=== PATIENT | male | born 1950 | race African-American/Black ===

== ENCOUNTER 2019-11-14 13:32 | Inpatient (IN) | payer OTHER ==
[~2019-11-14] VITALS: Ht 180.3 cm; Wt 76.2 kg
[2019-11-14] MEDS ORDERED: IPRATROPIUM BROMIDE (0.02%) 0.5MG/2.5ML NEB HHN STA (13:50)
[2019-11-14] MEDS ORDERED: METHYLPREDNISOLONE SOD SUCC 125 MG/2 ML VIAL IV STA (13:50)
[2019-11-14] MEDS ORDERED: ALBUTEROL (0.083%) 2.5MG/3ML NEB HHN STA (13:50)
[2019-11-14 14:06] LABS: HEMATOCRIT. 44.6 % (42.0-52.0); HEMOGLOBIN. 15.4 g/dL (14.0-18.0); MEAN CORPUSCULAR HEMOGLOBIN 31.7 pg (28.0-32.0); MEAN CORPUSCULAR VOLUME 91.7 fL (80.0-94.0); MEAN PLATELET VOLUME 7.6 fl (7.4-10.4); PLATELET 193 x1000/uL (130-400); RED BLOOD CELL COUNT 4.87 mill/uL (4.7-6.1); RED CELL DISTRIBUTION WIDTH 14.5 % (11.6-14.6)
[2019-11-14 14:14] LABS: CHLORIDE 96 mEq/L (98-107)
[2019-11-14 14:56] LABS: PLATELET ESTIMATE NORMAL
[2019-11-15] MEDS ORDERED: IPRATROPIUM/ALBUTEROL 0.5-3(2.5)MG/3ML NEB HHN PRN (05:00)
[2019-11-15 12:00] VITALS: BP 136/75
[2019-11-15] MEDS ORDERED: ALBUTEROL 6.7GM HFA INHALER ORI PRN (12:00)
[2019-11-15] MEDS ORDERED: BENZONATATE 100MG CAPSULE PO PRN (12:00)
[2019-11-15] MEDS: AZITHROMYCIN 500 MG TABLET PO SCH (13:22)
[2019-11-15] MEDS: ENOXAPARIN 40MG/0.4ML SYR SUBCUT SCH (13:23)
[2019-11-15] MEDS: METHYLPREDNISOLONE SOD SUCC 40 MG/ML VIAL IV SCH ×2 (13:23→20:40)
[2019-11-15] MEDS ORDERED: ALBUTEROL 6.7GM HFA INHALER ORI SCH (14:45)
[2019-11-15] MEDS: CEFTRIAXONE 1 G PREMIX 50 ML IV SCH (14:59)
[2019-11-15 16:00] VITALS: BP 112/83
[2019-11-15 17:37] LABS: D-DIMER 0.57 mg/L FEU (<0.50); PROTHROMBIN TIME 10.9 sec (9.6-11.0)
[2019-11-15 17:39] LABS: C REACTIVE PROTEIN QUANT 6.6 mg/L (0.0-3.0)
[2019-11-15 20:00] VITALS: BP 134/82
[2019-11-16 04:00] VITALS: BP 151/87
[2019-11-16] MEDS: METHYLPREDNISOLONE SOD SUCC 40 MG/ML VIAL IV SCH ×2 (04:35→12:04)
[2019-11-16 06:44] LABS: CLARITY URINE CLEAR (CLEAR); COLOR URINE YELLOW (YELLOW); KETONES URINE NEGATIVE (NEGATIVE); LEUKOCYTE ESTERASE URINE NEGATIVE (NEGATIVE); NITRITE URINE NEGATIVE (NEGATIVE); OCCULT BLOOD URINE NEGATIVE (NEGATIVE); PROTEIN URINE NEGATIVE (NEGATIVE); SPECIFIC GRAVITY URINE 1.012 (1.005-1.030); UROBILINOGEN URINE 0.2 E.U./dL (0.2-1.0)
[2019-11-16 07:01] LABS: *AMPHETAMINES SCREEN URINE NEGATIVE (NEGATIVE); *BARBITURATES SCREEN URINE NEGATIVE (NEGATIVE); CANNABINOID URINE SCREEN NEGATIVE (NEGATIVE); OPIATES URINE SCREEN NEGATIVE (NEGATIVE); PHENCYCLIDINE URINE SCREEN NEGATIVE (NEGATIVE)
[2019-11-16 07:02] LABS: *BENZODIAZEPINES SCREEN URINE NEGATIVE (NEGATIVE); *COCAINE SCREEN URINE NEGATIVE (NEGATIVE); METHADONE URINE SCREEN NEGATIVE (NEGATIVE)
[2019-11-16] MEDS: AZITHROMYCIN 500 MG TABLET PO SCH (08:17)
[2019-11-16 08:23] VITALS: BP 180/106
[2019-11-16 09:17] VITALS: BP 142/74
[2019-11-16] MEDS ORDERED: IPRATROPIUM/ALBUTEROL 0.5-3(2.5)MG/3ML NEB HHN PRN (11:15)
[2019-11-16 11:43] VITALS: BP 144/96
[2019-11-16] MEDS: ENOXAPARIN 40MG/0.4ML SYR SUBCUT SCH (12:30)
[2019-11-16] MEDS: CEFTRIAXONE 1 G PREMIX 50 ML IV SCH (15:45)
[2019-11-16 16:30] VITALS: BP 146/90
[2019-11-16 16:55] LABS: HEMATOCRIT. 46.3 % (42.0-52.0); HEMOGLOBIN. 15.7 g/dL (14.0-18.0); MEAN CORPUSCULAR HEMOGLOBIN 31.1 pg (28.0-32.0); MEAN CORPUSCULAR VOLUME 92.1 fL (80.0-94.0); MEAN PLATELET VOLUME 7.5 fl (7.4-10.4); PLATELET 205 x1000/uL (130-400); RED BLOOD CELL COUNT 5.03 mill/uL (4.7-6.1); RED CELL DISTRIBUTION WIDTH 14.6 % (11.6-14.6)
[2019-11-16] MEDS ORDERED: METHYLPREDNISOLONE SOD SUCC 40 MG/ML VIAL IV SCH (17:00)
[2019-11-16 17:01] LABS: CHLORIDE 99 mEq/L (98-107)
[2019-11-16 17:30] LABS: PLATELET ESTIMATE NORMAL
[2019-11-16] MEDS ORDERED: IPRATROPIUM/ALBUTEROL 0.5-3(2.5)MG/3ML NEB HHN SCH (18:00)
[2019-11-16 19:27] VITALS: BP 144/95
[2019-11-16] MEDS ORDERED: GUAIFENESIN 600MG ER TABLET PO SCH (21:00)
== END 2019-11-16 22:35 | disposition short-term general hospital (02) | DRG 871 ==
LOC: ER 14:07 → MICUSO 11-15 02:24 → EDBEDREQTM 11-15 02:26 → EDBEDREQ 11-15 02:26 → EDBEDREQDT 11-15 02:26 → 7WST 11-15 11:11 → 6WST 11-16 00:50
PROVIDERS: ADMIT Internal Medicine Nephrology; ATTEND Internal Medicine Nephrology
DX: A41.9 Sepsis, unspecified organism (principal); J96.01 Acute respiratory failure with hypoxia; J18.9 Pneumonia, unspecified organism; E44.1 Mild protein-calorie malnutrition; E87.1 Hypo-osmolality and hyponatremia; J44.1 Chronic obstructive pulmonary disease with (acute) exacerbation; I50.40 Unspecified combined systolic (congestive) and diastolic (congestive) heart failure; J44.0 Chronic obstructive pulmonary disease with (acute) lower respiratory infection; E87.8 Other disorders of electrolyte and fluid balance, not elsewhere classified; Z20.828 Contact with and (suspected) exposure to other viral communicable diseases; D71 Functional disorders of polymorphonuclear neutrophils; Z82.49 Family history of ischemic heart disease and other diseases of the circulatory system; Z68.23 Body mass index [BMI] 23.0-23.9, adult
CPT/HCPCS: 36415; 71045; 80053; 80305; 81003; 82728; 83615; 83880; 84484; 85025; 85379; 85384; 86140; 87077; 93005; 93306; 94640; 96374; 99285; J0696; J1650; J2920; J2930; U0003-CS

== ENCOUNTER 2021-07-07 16:14 | Inpatient (IN) | payer MEDICARE, OTHER ==
[~2021-07-07] VITALS: Ht 170.2 cm; Wt 52.2 kg
[2021-07-07] MEDS ORDERED: METHYLPREDNISOLONE SOD SUCC 125 MG/2 ML VIAL IV STA (17:17)
[2021-07-07] MEDS ORDERED: ASPIRIN 81MG TABLET PO ONE (17:30)
[2021-07-07] MEDS ORDERED: SODIUM CHLORIDE 0.9% 1,000 ML IV ONE (17:30)
[2021-07-07] MEDS ORDERED: ALBUTEROL 6.7GM HFA INHALER ORI ONE ×3 (17:30)
[2021-07-07] MEDS ORDERED: CEFTRIAXONE 1 G PREMIX 50 ML IV ONE (18:30)
[2021-07-07] MEDS ORDERED: AZITHROMYCIN 500MG/250ML 250 ML IV ONE (18:30)
[2021-07-07] MEDS ORDERED: SODIUM CHLORIDE 0.9% 1000ML BAG (SEPSIS BOLUS) IV ONE (18:30)
[2021-07-07 19:34] LABS: HEMATOCRIT. 40.7 % (42.0-52.0); HEMOGLOBIN. 12.9 g/dL (14.0-18.0); MEAN CORPUSCULAR HEMOGLOBIN 28.7 pg (28.0-32.0); MEAN CORPUSCULAR VOLUME 90.7 fL (80.0-94.0); MEAN PLATELET VOLUME 9.4 fl (7.4-10.4); PLATELET 143 x1000/uL (130-400); RED BLOOD CELL COUNT 4.49 mill/uL (4.7-6.1); RED CELL DISTRIBUTION WIDTH 16.7 % (11.6-14.6)
[2021-07-07 20:20] LABS: CHLORIDE 96 mEq/L (98-107)
[2021-07-07 21:06] LABS: BG BASE EXCESS 9.7 mmol/L (-2.0-2.0); BG CARBOXYHEMOGLOBIN 0.7 % (0.5-1.5); BG DEOXYHEMOGLOBIN 3.5 % (0.0-5.0); BG FRACTION INSPIRED OXYGEN 32; BG HCO3 ACT 39.8 mmol/L (22.0-26.0); BG METHEMOGLOBIN 0.4 % (0.0-1.5); BG OXYGEN SATURATION 96.5 % (92.0-98.5); BG OXYHEMOGLOBIN 95.4 % (94.0-97.0); BG PCO2 84.2 mmHg (35.0-45.0); BG PH 7.292 (7.350-7.450); BG PO2 92.1 mmHg (75.0-100.0); BG SAMPLE SITE LEFT RADIAL; BG TOTAL HEMOGLOBIN 13.7 g/dL (12.0-18.0); BG VENT MODE NASAL CANNULA
[2021-07-07] MEDS ORDERED: GUAIFENESIN 200MG/10ML SUGAR FREE UDC PO PRN (21:30)
[2021-07-07] MEDS ORDERED: MAGNESIUM/ALUMINUM HYDROXIDE/SIMETHICONE 30ML UDC PO PRN (21:30)
[2021-07-07] MEDS ORDERED: ONDANSETRON HCL 4MG/2ML INJ IV PRN (21:30)
[2021-07-07] MEDS ORDERED: KETOROLAC 15MG/ML VIAL IV PRN (21:30)
[2021-07-07] MEDS ORDERED: ACETAMINOPHEN 325MG TABLET PO PRN ×2 (21:30)
[2021-07-07] MEDS ORDERED: IPRATROPIUM/ALBUTEROL 0.5-3(2.5)MG/3ML NEB NEB PRN (21:30)
[2021-07-07] MEDS ORDERED: NITROGLYCERIN 0.4MG TABLET SL SL PRN (21:30)
[2021-07-07] MEDS ORDERED: ZOLPIDEM TARTRATE 5MG TABLET PO PRN (21:30)
[2021-07-07] MEDS ORDERED: CLONIDINE 0.1MG TABLET PO PRN (21:30)
[2021-07-07 21:52] LABS: ETHANOL BLOOD < 10 mg/dL
[2021-07-07 21:53] LABS: TOTAL IRON BINDING CAPACITY 288 ug/dL (250-450)
[2021-07-07 22:08] LABS: FOLIC ACID (FOLATE) SERUM 17.1 ng/mL (>5.38)
[2021-07-07 22:39] LABS: PLATELET ESTIMATE NORMAL
[2021-07-07 23:10] LABS: BG BASE EXCESS 4.9 mmol/L (-2.0-2.0); BG CARBOXYHEMOGLOBIN 0.5 % (0.5-1.5); BG DEOXYHEMOGLOBIN 0.7 % (0.0-5.0); BG FRACTION INSPIRED OXYGEN 50; BG HCO3 ACT 32.7 mmol/L (22.0-26.0); BG METHEMOGLOBIN 0.1 % (0.0-1.5); BG OXYGEN SATURATION 99.3 % (92.0-98.5); BG OXYHEMOGLOBIN 98.7 % (94.0-97.0); BG PCO2 62.8 mmHg (35.0-45.0); BG PH 7.334 (7.350-7.450); BG PO2 208.4 mmHg (75.0-100.0); BG SAMPLE SITE LEFT RADIAL; BG TOTAL HEMOGLOBIN 13.5 g/dL (12.0-18.0); BG VENT MODE MASK - BIPAP
[2021-07-07] MEDS: ENOXAPARIN 40MG/0.4ML SYR SUBCUT SCH (23:17)
[2021-07-07] MEDS: METHYLPREDNISOLONE SOD SUCC 125 MG/2 ML VIAL IV SCH (23:18)
[2021-07-08] VITALS (7 sets, daily range): BP systolic 104–139; BP diastolic 71–91
[2021-07-08 00:05] LABS: CREATINE KINASE MB FRACTION 2.8 ng/mL (0.5-3.6)
[2021-07-08] MEDS: IPRATROPIUM/ALBUTEROL 0.5-3(2.5)MG/3ML NEB HHN SCH ×6 (00:45→22:09)
[2021-07-08] MEDS: METHYLPREDNISOLONE SOD SUCC 125 MG/2 ML VIAL IV SCH ×3 (06:19→21:34)
[2021-07-08 08:17] LABS: HEMATOCRIT. 40.8 % (42.0-52.0); HEMOGLOBIN. 12.9 g/dL (14.0-18.0); MEAN CORPUSCULAR HEMOGLOBIN 28.9 pg (28.0-32.0); MEAN CORPUSCULAR VOLUME 91.5 fL (80.0-94.0); MEAN PLATELET VOLUME 9.7 fl (7.4-10.4); PLATELET 126 x1000/uL (130-400); RED BLOOD CELL COUNT 4.46 mill/uL (4.7-6.1); RED CELL DISTRIBUTION WIDTH 17.2 % (11.6-14.6)
[2021-07-08 08:26] LABS: CHLORIDE 96 mEq/L (98-107)
[2021-07-08 08:52] LABS: CREATINE KINASE MB FRACTION 2.3 ng/mL (0.5-3.6)
[2021-07-08] MEDS: ZINC SULFATE 220 MG ( 50 ) CAPSULE PO SCH (10:38)
[2021-07-08] MEDS: CHOLECALCIFEROL (D3) 1000 UNIT TABLET PO SCH (10:38)
[2021-07-08] MEDS: FAMOTIDINE 20MG TABLET PO SCH ×2 (10:38→21:34)
[2021-07-08] MEDS: ASPIRIN 325MG EC TABLET PO SCH (10:38)
[2021-07-08] MEDS: ASCORBIC ACID 500 MG TABLET PO SCH ×2 (10:38→21:34)
[2021-07-08] MEDS: FUROSEMIDE 40MG/4ML VIAL IVP SCH ×2 (10:39→21:34)
[2021-07-08] MEDS ORDERED: INFLUENZA VACCINE 05/PF 0.5 ML SYRINGE IM ONE (13:15)
[2021-07-08] MEDS ORDERED: PNEUMOCOCCAL 23-VAL P-SAC VAC 0.5 ML IM ONE (13:15)
[2021-07-08 13:44] LABS: PLATELET ESTIMATE SLIGHTLY DECREASED
[2021-07-08] MEDS ORDERED: SODIUM POLYSTYRENE SULFONATE 15 G/60 ML BOT PO NR (14:00)
[2021-07-08] MEDS: CEFTRIAXONE 1,000 MG in DEXTROSE 5% WATER 50 ML IV SCH (14:46)
[2021-07-08] MEDS ORDERED: TERBUTALINE SULFATE 1MG/ML VIAL SUBCUT NR (15:00)
[2021-07-08] MEDS: AZITHROMYCIN 500 MG in DEXT 5% WATER 250 ML IV SCH (15:53)
[2021-07-08] MEDS ORDERED: CEFTRIAXONE 1,000 MG in DEXTROSE 5% WATER 50 ML IV SCH (20:00)
[2021-07-08] MEDS ORDERED: AZITHROMYCIN 500 MG in DEXT 5% WATER 250 ML IV SCH (21:00)
[2021-07-08] MEDS: ENOXAPARIN 40MG/0.4ML SYR SUBCUT SCH (21:34)
[2021-07-09] VITALS (12 sets, daily range): BP systolic 113–143; BP diastolic 70–97
[2021-07-09] MEDS: IPRATROPIUM/ALBUTEROL 0.5-3(2.5)MG/3ML NEB HHN SCH ×6 (01:49→20:00)
[2021-07-09] MEDS: METHYLPREDNISOLONE SOD SUCC 125 MG/2 ML VIAL IV SCH ×3 (05:53→21:35)
[2021-07-09 07:48] LABS: BG BASE EXCESS 15.5 mmol/L (-2.0-2.0); BG CARBOXYHEMOGLOBIN 0.6 % (0.5-1.5); BG DEOXYHEMOGLOBIN 3.1 % (0.0-5.0); BG HCO3 ACT 43.7 mmol/L (22.0-26.0); BG METHEMOGLOBIN 0.3 % (0.0-1.5); BG OXYGEN SATURATION 96.9 % (92.0-98.5); BG PCO2 71.8 mmHg (35.0-45.0); BG PH 7.402 (7.350-7.450); BG PO2 91.6 mmHg (75.0-100.0); BG SAMPLE SITE RIGHT BRACHIAL; BG TOTAL HEMOGLOBIN 13.1 g/dL (12.0-18.0); BG VENT MODE MASK - BIPAP
[2021-07-09] MEDS: CHOLECALCIFEROL (D3) 1000 UNIT TABLET PO SCH (08:02)
[2021-07-09] MEDS: ASCORBIC ACID 500 MG TABLET PO SCH ×2 (08:02→21:34)
[2021-07-09] MEDS: ASPIRIN 325MG EC TABLET PO SCH (08:02)
[2021-07-09] MEDS: FAMOTIDINE 20MG TABLET PO SCH ×2 (08:02→21:34)
[2021-07-09] MEDS: ZINC SULFATE 220 MG ( 50 ) CAPSULE PO SCH (08:02)
[2021-07-09] MEDS: DOCUSATE SODIUM 100MG CAPSULE PO PRN (08:02)
[2021-07-09] MEDS: FUROSEMIDE 40MG/4ML VIAL IVP SCH ×2 (08:02→21:34)
[2021-07-09] MEDS: CEFTRIAXONE 1,000 MG in DEXTROSE 5% WATER 50 ML IV SCH (13:30)
[2021-07-09] MEDS: AZITHROMYCIN 500 MG in DEXT 5% WATER 250 ML IV SCH (14:28)
[2021-07-09] MEDS ORDERED: IOHEXOL-350 100 ML BOTTLE ONE (20:55)
[2021-07-09] MEDS: ENOXAPARIN 40MG/0.4ML SYR SUBCUT SCH (21:35)
[2021-07-10] VITALS (13 sets, daily range): BP systolic 97–132; BP diastolic 65–86
[2021-07-10] MEDS: IPRATROPIUM/ALBUTEROL 0.5-3(2.5)MG/3ML NEB HHN SCH ×5 (00:53→21:07)
[2021-07-10] MEDS ORDERED: INFLUENZA VACCINE 05/PF 0.5 ML SYRINGE IM ONE (05:00)
[2021-07-10] MEDS ORDERED: PNEUMOCOCCAL 23-VAL P-SAC VAC 0.5 ML IM ONE (05:00)
[2021-07-10] MEDS: FUROSEMIDE 40MG/4ML VIAL IVP SCH ×2 (05:10→17:59)
[2021-07-10] MEDS: METHYLPREDNISOLONE SOD SUCC 125 MG/2 ML VIAL IV SCH (05:10)
[2021-07-10] MEDS: ASCORBIC ACID 500 MG TABLET PO SCH ×2 (09:32→21:24)
[2021-07-10] MEDS: ASPIRIN 81MG TABLET PO SCH (09:32)
[2021-07-10] MEDS: DOCUSATE SODIUM 100MG CAPSULE PO PRN (09:32)
[2021-07-10] MEDS: FAMOTIDINE 20MG TABLET PO SCH ×2 (09:32→21:24)
[2021-07-10] MEDS: ZINC SULFATE 220 MG ( 50 ) CAPSULE PO SCH (09:32)
[2021-07-10] MEDS: CHOLECALCIFEROL (D3) 1000 UNIT TABLET PO SCH (09:32)
[2021-07-10 12:36] LABS: CHLORIDE 85 mEq/L (98-107)
[2021-07-10] MEDS: METHYLPREDNISOLONE SOD SUCC 40 MG/ML VIAL IV SCH ×2 (14:47→21:24)
[2021-07-10] MEDS: CEFTRIAXONE 1,000 MG in DEXTROSE 5% WATER 50 ML IV SCH (14:47)
[2021-07-10] MEDS: AZITHROMYCIN 500 MG in DEXT 5% WATER 250 ML IV SCH (15:13)
[2021-07-10] MEDS: ENOXAPARIN 40MG/0.4ML SYR SUBCUT SCH (21:24)
[2021-07-11] VITALS (13 sets, daily range): BP systolic 116–145; BP diastolic 73–93
[2021-07-11] MEDS: IPRATROPIUM/ALBUTEROL 0.5-3(2.5)MG/3ML NEB HHN SCH ×6 (00:07→21:06)
[2021-07-11] MEDS: FUROSEMIDE 40MG/4ML VIAL IVP SCH (06:11)
[2021-07-11] MEDS: METHYLPREDNISOLONE SOD SUCC 40 MG/ML VIAL IV SCH ×3 (06:11→21:24)
[2021-07-11] MEDS: CHOLECALCIFEROL (D3) 1000 UNIT TABLET PO SCH (08:02)
[2021-07-11] MEDS: ZINC SULFATE 220 MG ( 50 ) CAPSULE PO SCH (08:02)
[2021-07-11] MEDS: ASCORBIC ACID 500 MG TABLET PO SCH ×2 (08:02→21:25)
[2021-07-11] MEDS: FAMOTIDINE 20MG TABLET PO SCH ×2 (08:02→21:25)
[2021-07-11] MEDS: DOCUSATE SODIUM 100MG CAPSULE PO PRN (08:02)
[2021-07-11] MEDS: ASPIRIN 81MG TABLET PO SCH (08:02)
[2021-07-11] MEDS: CEFTRIAXONE 1,000 MG in DEXTROSE 5% WATER 50 ML IV SCH (13:28)
[2021-07-11] MEDS ORDERED: AZITHROMYCIN 500 MG TABLET PO SCH (14:00)
[2021-07-11 15:17] LABS: BG BASE EXCESS 27.6 mmol/L (-2.0-2.0); BG CARBOXYHEMOGLOBIN 0.6 % (0.5-1.5); BG DEOXYHEMOGLOBIN 1.3 % (0.0-5.0); BG FRACTION INSPIRED OXYGEN 32; BG HCO3 ACT 58.1 mmol/L (22.0-26.0); BG METHEMOGLOBIN 0.4 % (0.0-1.5); BG OXYGEN SATURATION 98.7 % (92.0-98.5); BG OXYHEMOGLOBIN 97.7 % (94.0-97.0); BG PCO2 86.7 mmHg (35.0-45.0); BG PH 7.444 (7.350-7.450); BG PO2 136.1 mmHg (75.0-100.0); BG SAMPLE SITE LEFT RADIAL; BG TOTAL HEMOGLOBIN 14.4 g/dL (12.0-18.0); BG VENT MODE NASAL CANNULA
[2021-07-11] MEDS: ENOXAPARIN 40MG/0.4ML SYR SUBCUT SCH (21:25)
[2021-07-12] VITALS (15 sets, daily range): BP systolic 119–144; BP diastolic 68–85
[2021-07-12] MEDS: IPRATROPIUM/ALBUTEROL 0.5-3(2.5)MG/3ML NEB HHN SCH ×6 (00:48→22:11)
[2021-07-12] MEDS: METHYLPREDNISOLONE SOD SUCC 40 MG/ML VIAL IV SCH ×3 (05:33→21:44)
[2021-07-12] MEDS: ZINC SULFATE 220 MG ( 50 ) CAPSULE PO SCH (08:09)
[2021-07-12] MEDS: ASCORBIC ACID 500 MG TABLET PO SCH ×2 (08:09→21:44)
[2021-07-12] MEDS: FAMOTIDINE 20MG TABLET PO SCH ×2 (08:09→21:44)
[2021-07-12] MEDS: CHOLECALCIFEROL (D3) 1000 UNIT TABLET PO SCH (08:09)
[2021-07-12] MEDS: ASPIRIN 81MG TABLET PO SCH (08:10)
[2021-07-12] MEDS ORDERED: FUROSEMIDE 40MG TABLET PO SCH (09:00)
[2021-07-12] MEDS ORDERED: HEPARIN SODIUM 1,000 UNIT/1ML VIAL IV ONE (09:06)
[2021-07-12] MEDS ORDERED: NITROGLYCERIN 50MCG/ML 10ML VIAL (CATH LAB) IV ONE (09:06)
[2021-07-12] MEDS ORDERED: NICARDIPINE 100MCG/ML 10ML VIAL (CATH LAB) IV ONE (09:06)
[2021-07-12 11:59] LABS: HEMATOCRIT 43.7 % (42.0-52.0); HEMOGLOBIN 13.7 g/dL (14.0-18.0); MEAN CORPUSCULAR HEMOGLOBIN 28.4 pg (28.0-32.0); MEAN CORPUSCULAR VOLUME 90.7 fL (80.0-94.0); PLATELET 108 x1000/uL (130-400); RED BLOOD CELL COUNT 4.82 mill/uL (4.7-6.1)
[2021-07-12] MEDS: CEFTRIAXONE 1,000 MG in DEXTROSE 5% WATER 50 ML IV SCH (12:11)
[2021-07-12] MEDS ORDERED: VERAPAMIL HCL 2.5 MG/1 ML 2ML VIAL IV ONE (12:18)
[2021-07-12] MEDS ORDERED: IODIXANOL 320MG/ML 100 ML BOTTLE IV ONE (12:18)
[2021-07-12] MEDS ORDERED: LIDOCAINE HCL 1% 20ML VIAL (Pyxis) INJ ONE (12:18)
[2021-07-12 12:27] LABS: CHLORIDE 85 mEq/L (98-107)
[2021-07-12] MEDS ORDERED: FENTANYL CITRATE/PF 50MCG/ML 2ML VIAL ONE (14:18)
[2021-07-12] MEDS ORDERED: MIDAZOLAM HCL 2 MG/2 ML VIAL ONE (14:18)
[2021-07-12] MEDS ORDERED: ATROPINE SULFATE 1MG/10ML SYR IV PRN (14:45)
[2021-07-12] MEDS: ENOXAPARIN 40MG/0.4ML SYR SUBCUT SCH (21:00)
[2021-07-13] VITALS (12 sets, daily range): BP systolic 97–140; BP diastolic 69–99
[2021-07-13] MEDS: IPRATROPIUM/ALBUTEROL 0.5-3(2.5)MG/3ML NEB HHN SCH ×6 (00:31→21:17)
[2021-07-13] MEDS: METHYLPREDNISOLONE SOD SUCC 40 MG/ML VIAL IV SCH ×3 (05:45→20:56)
[2021-07-13 07:23] LABS: HEMATOCRIT. 43.4 % (42.0-52.0); HEMOGLOBIN. 13.6 g/dL (14.0-18.0); MEAN CORPUSCULAR HEMOGLOBIN 28.6 pg (28.0-32.0); MEAN CORPUSCULAR VOLUME 91.2 fL (80.0-94.0); MEAN PLATELET VOLUME 9.4 fl (7.4-10.4); PLATELET 97 x1000/uL (130-400); RED BLOOD CELL COUNT 4.76 mill/uL (4.7-6.1); RED CELL DISTRIBUTION WIDTH 15.9 % (11.6-14.6)
[2021-07-13 07:35] LABS: CHLORIDE 85 mEq/L (98-107)
[2021-07-13] MEDS: CHOLECALCIFEROL (D3) 1000 UNIT TABLET PO SCH (08:28)
[2021-07-13] MEDS: ASCORBIC ACID 500 MG TABLET PO SCH ×2 (08:28→20:56)
[2021-07-13] MEDS: ZINC SULFATE 220 MG ( 50 ) CAPSULE PO SCH (08:28)
[2021-07-13] MEDS: FAMOTIDINE 20MG TABLET PO SCH ×2 (08:28→20:56)
[2021-07-13] MEDS: ASPIRIN 81MG TABLET PO SCH (08:28)
[2021-07-13 13:20] LABS: PLATELET ESTIMATE DECREASED
[2021-07-13] MEDS: ENOXAPARIN 40MG/0.4ML SYR SUBCUT SCH (21:00)
[2021-07-14] VITALS (11 sets, daily range): BP systolic 110–129; BP diastolic 69–79
[2021-07-14] MEDS: IPRATROPIUM/ALBUTEROL 0.5-3(2.5)MG/3ML NEB HHN SCH ×6 (00:47→21:47)
[2021-07-14] MEDS: METHYLPREDNISOLONE SOD SUCC 40 MG/ML VIAL IV SCH ×3 (05:35→21:14)
[2021-07-14] MEDS: CHOLECALCIFEROL (D3) 1000 UNIT TABLET PO SCH (08:59)
[2021-07-14] MEDS: ASPIRIN 81MG TABLET PO SCH (08:59)
[2021-07-14] MEDS: FAMOTIDINE 20MG TABLET PO SCH ×2 (08:59→21:11)
[2021-07-14] MEDS: ZINC SULFATE 220 MG ( 50 ) CAPSULE PO SCH (08:59)
[2021-07-14] MEDS: ASCORBIC ACID 500 MG TABLET PO SCH ×2 (08:59→21:11)
[2021-07-14 14:42] LABS: BG BASE EXCESS 21.1 mmol/L (-2.0-2.0); BG CARBOXYHEMOGLOBIN 1.1 % (0.5-1.5); BG DEOXYHEMOGLOBIN 3.4 % (0.0-5.0); BG FRACTION INSPIRED OXYGEN 28; BG HCO3 ACT 50.3 mmol/L (22.0-26.0); BG METHEMOGLOBIN 0.5 % (0.0-1.5); BG OXYGEN SATURATION 96.5 % (92.0-98.5); BG PCO2 77.4 mmHg (35.0-45.0); BG PH 7.431 (7.350-7.450); BG PO2 85.5 mmHg (75.0-100.0); BG SAMPLE SITE LEFT BRACHIAL; BG TOTAL HEMOGLOBIN 14.4 g/dL (12.0-18.0); BG VENT MODE NASAL CANNULA
[2021-07-14 17:07] LABS: BG BASE EXCESS 17.5 mmol/L (-2.0-2.0); BG CARBOXYHEMOGLOBIN 0.9 % (0.5-1.5); BG DEOXYHEMOGLOBIN 21.8 % (0.0-5.0); BG FRACTION INSPIRED OXYGEN 21; BG HCO3 ACT 45.3 mmol/L (22.0-26.0); BG METHEMOGLOBIN 0.3 % (0.0-1.5); BG OXYGEN SATURATION 77.9 % (92.0-98.5); BG PH 7.454 (7.350-7.450); BG PO2 40.4 mmHg (75.0-100.0); BG SAMPLE SITE LEFT RADIAL; BG TOTAL HEMOGLOBIN 14.8 g/dL (12.0-18.0); BG VENT MODE ROOM AIR
[2021-07-14] MEDS: ENOXAPARIN 40MG/0.4ML SYR SUBCUT SCH (21:00)
[2021-07-15] VITALS (10 sets, daily range): BP systolic 126–152; BP diastolic 70–96
[2021-07-15] MEDS: IPRATROPIUM/ALBUTEROL 0.5-3(2.5)MG/3ML NEB HHN SCH ×5 (01:16→16:56)
[2021-07-15] MEDS: METHYLPREDNISOLONE SOD SUCC 40 MG/ML VIAL IV SCH ×2 (06:10→16:30)
[2021-07-15] MEDS: ASPIRIN 81MG TABLET PO SCH (08:27)
[2021-07-15] MEDS: ASCORBIC ACID 500 MG TABLET PO SCH (08:27)
[2021-07-15] MEDS: FAMOTIDINE 20MG TABLET PO SCH (08:28)
[2021-07-15] MEDS: CHOLECALCIFEROL (D3) 1000 UNIT TABLET PO SCH (08:28)
[2021-07-15] MEDS: ZINC SULFATE 220 MG ( 50 ) CAPSULE PO SCH (08:28)
[2021-07-15] MEDS ORDERED: SODIUM CHLORIDE 0.9% 250 ML IV ONE (10:30)
== END 2021-07-15 19:28 | DRG 280 ==
LOC: ER 16:14 → 3WST 21:20 → SUPCPDRO 21:22 → ENRESERV 07-08 07:43
PROVIDERS: ADMIT Internal Medicine; ATTEND Internal Medicine
PROC: 5A09357 Assistance with Respiratory Ventilation, Less than 24 Consecutive Hours, Continuous Positive Airway Pressure (ICD-10-PCS; 2021-07-08)
PROC: 5A09357 Assistance with Respiratory Ventilation, Less than 24 Consecutive Hours, Continuous Positive Airway Pressure (ICD-10-PCS; 2021-07-09)
PROC: 5A09357 Assistance with Respiratory Ventilation, Less than 24 Consecutive Hours, Continuous Positive Airway Pressure (ICD-10-PCS; 2021-07-10)
PROC: 5A09357 Assistance with Respiratory Ventilation, Less than 24 Consecutive Hours, Continuous Positive Airway Pressure (ICD-10-PCS; 2021-07-11)
PROC: 4A023N7 Measurement of Cardiac Sampling and Pressure, Left Heart, Percutaneous Approach (ICD-10-PCS; principal; 2021-07-12)
PROC: B211YZZ Fluoroscopy of Multiple Coronary Arteries using Other Contrast (ICD-10-PCS; 2021-07-12)
DX: I50.43 Acute on chronic combined systolic (congestive) and diastolic (congestive) heart failure (principal); J96.01 Acute respiratory failure with hypoxia; I21.A1 Myocardial infarction type 2; J96.02 Acute respiratory failure with hypercapnia; E44.0 Moderate protein-calorie malnutrition; I42.8 Other cardiomyopathies; Z68.1 Body mass index [BMI] 19.9 or less, adult; D63.8 Anemia in other chronic diseases classified elsewhere; E87.5 Hyperkalemia; D69.6 Thrombocytopenia, unspecified; I25.10 Atherosclerotic heart disease of native coronary artery without angina pectoris; I50.82 Biventricular heart failure; J43.9 Emphysema, unspecified; I27.81 Cor pulmonale (chronic); Z87.891 Personal history of nicotine dependence; Z20.822 Contact with and (suspected) exposure to COVID-19
CPT/HCPCS: 36415; 36600; 71045; 71275; 80048; 80053; 80320; 82375; 82550; 82553; 82607; 82746; 82805; 83540; 83550; 83605; 83735; 83880; 84145; 84443; 84484; 85025; 85027; 87426; 90686; 90732; 92610; 93005; 93306; 93458; 93970; 94640; 94660; 97116; 97161; 99291; C1769; C1887; C1893; J0456; J0696; J1644; J1650; J1940; J2250; J2920; J2930; J3010; J3105; J3490; J7030; J7060; Q9967; G0480

== ENCOUNTER 2021-07-22 02:31 | Inpatient (IN) | payer OTHER ==
[~2021-07-22] VITALS: Ht 167.6 cm; Wt 77.1 kg
[2021-07-22] VITALS (55 sets, daily range): BP systolic 71–163; BP diastolic 46–106
[2021-07-22] MEDS ORDERED: CEFTRIAXONE 1 G PREMIX 50 ML IV ONE (03:00)
[2021-07-22] MEDS ORDERED: ACETAMINOPHEN 325MG TABLET PO ONE (03:00)
[2021-07-22] MEDS ORDERED: DEXAMETHASONE 10 MG/ML VIAL IV ONE (03:00)
[2021-07-22] MEDS ORDERED: AZITHROMYCIN 500MG/250ML 250 ML IV ONE (03:00)
[2021-07-22 03:32] LABS: BG BASE EXCESS 7.3 mmol/L (-2.0-2.0); BG CARBOXYHEMOGLOBIN 0.2 % (0.5-1.5); BG DEOXYHEMOGLOBIN 7.8 % (0.0-5.0); BG FRACTION INSPIRED OXYGEN 100; BG HCO3 ACT 37.7 mmol/L (22.0-26.0); BG OXYGEN SATURATION 92.2 % (92.0-98.5); BG PCO2 86.4 mmHg (35.0-45.0); BG PH 7.258 (7.350-7.450); BG PO2 69.1 mmHg (75.0-100.0); BG SAMPLE SITE LEFT RADIAL; BG TOTAL HEMOGLOBIN 13.6 g/dL (12.0-18.0); BG VENT MODE MASK - VENTI
[2021-07-22] MEDS ORDERED: MIDAZOLAM HCL 50 MG in DEXTROSE 5% WATER 40 ML IV STA (03:36)
[2021-07-22 03:39] LABS: CHLORIDE 92 mEq/L (98-107)
[2021-07-22 03:41] LABS: HEMATOCRIT. 42.6 % (42.0-52.0); HEMOGLOBIN. 13.3 g/dL (14.0-18.0); MEAN CORPUSCULAR HEMOGLOBIN 28.7 pg (28.0-32.0); MEAN CORPUSCULAR VOLUME 92.4 fL (80.0-94.0); MEAN PLATELET VOLUME 9.3 fl (7.4-10.4); PLATELET 148 x1000/uL (130-400); RED BLOOD CELL COUNT 4.62 mill/uL (4.7-6.1)
[2021-07-22] MEDS ORDERED: VECURONIUM BROMIDE 10 MG/VIAL IV SCH (03:45)
[2021-07-22] MEDS ORDERED: PROPOFOL 10MG/ML 100ML 100 ML IV SCH (03:45)
[2021-07-22] MEDS ORDERED: ETOMIDATE 2MG/ML 10ML VIAL IV SCH (03:45)
[2021-07-22] MEDS ORDERED: MIDAZOLAM HCL 100 MG in SODIUM CHLORIDE 0.9% 100 ML IV PRN ×2 (04:00→12:00)
[2021-07-22] MEDS ORDERED: AZITHROMYCIN 500 MG in DEXT 5% WATER 250 ML IV SCH (05:00)
[2021-07-22 05:32] LABS: PLATELET ESTIMATE NORMAL
[2021-07-22 05:58] LABS: CLARITY URINE CLEAR (CLEAR); COLOR URINE YELLOW (YELLOW); KETONES URINE 2+ (NEGATIVE); LEUKOCYTE ESTERASE URINE NEGATIVE (NEGATIVE); NITRITE URINE NEGATIVE (NEGATIVE); OCCULT BLOOD URINE TRACE (NEGATIVE); PH URINE 6.5 (4.5-8.0); PROTEIN URINE 1+ (NEGATIVE); SPECIFIC GRAVITY URINE 1.018 (1.005-1.030)
[2021-07-22] MEDS ORDERED: IPRATROPIUM/ALBUTEROL 0.5-3(2.5)MG/3ML NEB HHN PRN (06:45)
[2021-07-22] MEDS: METHYLPREDNISOLONE SOD SUCC 125 MG/2 ML VIAL IV SCH ×4 (07:08→23:57)
[2021-07-22] MEDS ORDERED: VANCOMYCIN 1G PREMIX 200 ML IV SCH ×2 (08:00→12:00)
[2021-07-22] MEDS ORDERED: ETOMIDATE 2MG/ML 10ML VIAL IV ONE (08:35)
[2021-07-22] MEDS ORDERED: VECURONIUM BROMIDE 10 MG/VIAL IV ONE (08:35)
[2021-07-22] MEDS: ENOXAPARIN 40MG/0.4ML SYR SUBCUT SCH (09:00)
[2021-07-22] MEDS ORDERED: PIPERACILLIN/TAZ 3.375G PREMIX 50 ML IV SCH (09:00)
[2021-07-22 10:08] LABS: BG BASE EXCESS 2.7 mmol/L (-2.0-2.0); BG CARBOXYHEMOGLOBIN 0.3 % (0.5-1.5); BG FRACTION INSPIRED OXYGEN 50; BG HCO3 ACT 25.6 mmol/L (22.0-26.0); BG METHEMOGLOBIN 0.5 % (0.0-1.5); BG OXYHEMOGLOBIN 97.2 % (94.0-97.0); BG PCO2 33.4 mmHg (35.0-45.0); BG PH 7.502 (7.350-7.450); BG PO2 103.6 mmHg (75.0-100.0); BG SAMPLE SITE RIGHT RADIAL; BG TOTAL HEMOGLOBIN 11.1 g/dL (12.0-18.0); BG VENT MODE VENT - AC/VC
[2021-07-22] MEDS ORDERED: MIDAZOLAM 100MG/100ML PMX 100 ML IV PRN (11:45)
[2021-07-22] MEDS ORDERED: PROPOFOL 10MG/ML 100ML 100 ML IV PRN ×2 (11:45→15:15)
[2021-07-22] MEDS: PIPERACILLIN/TAZOBACTAM 3.375 G in DEXTROSE 5% WATER 50 ML IV SCH ×2 (13:21→21:57)
[2021-07-22] MEDS: DOCUSATE SODIUM SUGAR FREE 100MG/10ML UDC NG SCH (18:02)
[2021-07-22] MEDS: SODIUM CHLORIDE 0.9% 1,000 ML IV SCH (18:03)
[2021-07-22] MEDS ORDERED: VANCOMYCIN 750 MG in DEXT 5% WATER 250 ML IV SCH (20:00)
[2021-07-22] MEDS: IPRATROPIUM/ALBUTEROL 0.5-3(2.5)MG/3ML NEB HHN SCH (20:42)
[2021-07-22] MEDS: FENTANYL CITRATE/PF 2,500 MCG in SODIUM CHLORIDE 0.9% 200 ML IV PRN (20:53)
[2021-07-22] MEDS: FAMOTIDINE 20MG/2ML VIAL IV SCH (21:52)
[2021-07-22] MEDS: PHENYLEPHRINE 100 MG in DEXT 5% WATER 240 ML IV PRN (22:04)
[2021-07-22] MEDS: VANCOMYCIN 750 MG in DEXT 5% WATER 250 ML IV SCH (23:01)
[2021-07-23] VITALS (102 sets, daily range): BP systolic 74–181; BP diastolic 43–120
[2021-07-23] MEDS: IPRATROPIUM/ALBUTEROL 0.5-3(2.5)MG/3ML NEB HHN SCH ×6 (00:35→20:43)
[2021-07-23] MEDS: SODIUM CHLORIDE 0.9% 1,000 ML IV SCH ×2 (03:45→17:17)
[2021-07-23 05:26] LABS: HEMOGLOBIN. 11.3 g/dL (14.0-18.0); MEAN CORPUSCULAR VOLUME 89.3 fL (80.0-94.0); MEAN PLATELET VOLUME 9.2 fl (7.4-10.4); PLATELET 126 x1000/uL (130-400); RED BLOOD CELL COUNT 3.92 mill/uL (4.7-6.1); RED CELL DISTRIBUTION WIDTH 15.9 % (11.6-14.6)
[2021-07-23 05:38] LABS: CHLORIDE 99 mEq/L (98-107)
[2021-07-23] MEDS: METHYLPREDNISOLONE SOD SUCC 125 MG/2 ML VIAL IV SCH ×3 (05:41→17:17)
[2021-07-23] MEDS: PIPERACILLIN/TAZOBACTAM 3.375 G in DEXTROSE 5% WATER 50 ML IV SCH ×3 (05:51→23:16)
[2021-07-23 06:11] LABS: HDL CHOLESTEROL 45 mg/dL (40-59)
[2021-07-23 06:16] LABS: LDL CHOLESTEROL 70 mg/dL (5-100)
[2021-07-23] MEDS: FAMOTIDINE 20MG/2ML VIAL IV SCH ×2 (08:29→21:16)
[2021-07-23] MEDS: VANCOMYCIN 750 MG in DEXT 5% WATER 250 ML IV SCH ×2 (08:29→21:21)
[2021-07-23] MEDS: DOCUSATE SODIUM SUGAR FREE 100MG/10ML UDC NG SCH (08:30)
[2021-07-23] MEDS: ENOXAPARIN 40MG/0.4ML SYR SUBCUT SCH (08:30)
[2021-07-23 08:49] LABS: BG BASE EXCESS 4.8 mmol/L (-2.0-2.0); BG CARBOXYHEMOGLOBIN 0.3 % (0.5-1.5); BG DEOXYHEMOGLOBIN 0.7 % (0.0-5.0); BG METHEMOGLOBIN 0.3 % (0.0-1.5); BG OXYGEN SATURATION 99.3 % (92.0-98.5); BG OXYHEMOGLOBIN 98.7 % (94.0-97.0); BG PH 7.544 (7.350-7.450); BG PO2 191.5 mmHg (75.0-100.0); BG SAMPLE SITE RIGHT BRACHIAL; BG TOTAL HEMOGLOBIN 11.8 g/dL (12.0-18.0); BG VENT MODE VENT - P/C
[2021-07-23 16:17] LABS: PLATELET ESTIMATE DECREASED
[2021-07-24] VITALS (99 sets, daily range): BP systolic 80–196; BP diastolic 52–124
[2021-07-24] MEDS: METHYLPREDNISOLONE SOD SUCC 125 MG/2 ML VIAL IV SCH ×4 (00:01→17:54)
[2021-07-24] MEDS: IPRATROPIUM/ALBUTEROL 0.5-3(2.5)MG/3ML NEB HHN SCH ×6 (00:36→21:03)
[2021-07-24 06:07] LABS: HEMATOCRIT. 38.7 % (42.0-52.0); HEMOGLOBIN. 12.8 g/dL (14.0-18.0); MEAN CORPUSCULAR HEMOGLOBIN 29.3 pg (28.0-32.0); MEAN CORPUSCULAR VOLUME 88.6 fL (80.0-94.0); MEAN PLATELET VOLUME 8.4 fl (7.4-10.4); PLATELET 106 x1000/uL (130-400); RED BLOOD CELL COUNT 4.37 mill/uL (4.7-6.1); RED CELL DISTRIBUTION WIDTH 16.5 % (11.6-14.6)
[2021-07-24 06:22] LABS: CHLORIDE 100 mEq/L (98-107)
[2021-07-24] MEDS: SODIUM CHLORIDE 0.9% 1,000 ML IV SCH (06:30)
[2021-07-24] MEDS: PIPERACILLIN/TAZOBACTAM 3.375 G in DEXTROSE 5% WATER 50 ML IV SCH ×3 (06:31→22:26)
[2021-07-24] MEDS: FAMOTIDINE 20MG/2ML VIAL IV SCH ×2 (08:24→20:37)
[2021-07-24] MEDS: DOCUSATE SODIUM SUGAR FREE 100MG/10ML UDC NG SCH (08:25)
[2021-07-24] MEDS: ENOXAPARIN 40MG/0.4ML SYR SUBCUT SCH (08:25)
[2021-07-24] MEDS: VANCOMYCIN 750 MG in DEXT 5% WATER 250 ML IV SCH (08:44)
[2021-07-24] MEDS: FENTANYL CITRATE/PF 2,500 MCG in SODIUM CHLORIDE 0.9% 200 ML IV PRN (08:45)
[2021-07-24 10:03] LABS: BG BASE EXCESS -2.7 mmol/L (-2.0-2.0); BG CARBOXYHEMOGLOBIN 0.3 % (0.5-1.5); BG DEOXYHEMOGLOBIN 3.7 % (0.0-5.0); BG FRACTION INSPIRED OXYGEN 40; BG HCO3 ACT 28.6 mmol/L (22.0-26.0); BG METHEMOGLOBIN 0.3 % (0.0-1.5); BG OXYGEN SATURATION 96.3 % (92.0-98.5); BG OXYHEMOGLOBIN 95.7 % (94.0-97.0); BG PCO2 86.9 mmHg (35.0-45.0); BG PH 7.135 (7.350-7.450); BG PO2 107.4 mmHg (75.0-100.0); BG SAMPLE SITE RIGHT RADIAL; BG TOTAL HEMOGLOBIN 13.3 g/dL (12.0-18.0); BG TOTAL RESPIRATORY RATE 19 b/min; BG VENT MODE VENT - P/C
[2021-07-24] MEDS ORDERED: BISACODYL 10MG SUPP PR PRN (11:00)
[2021-07-24 15:41] LABS: PROTHROMBIN TIME 10.6 sec (9.6-11.0)
[2021-07-24 16:10] LABS: PLATELET ESTIMATE DECREASED
[2021-07-24] MEDS: BISACODYL 10MG SUPP PR PRN (20:37)
[2021-07-25] VITALS (94 sets, daily range): BP systolic 80–198; BP diastolic 45–114
[2021-07-25] MEDS: VANCOMYCIN 500MG PREMIX 100 ML IV SCH ×3 (00:08→20:37)
[2021-07-25] MEDS: METHYLPREDNISOLONE SOD SUCC 125 MG/2 ML VIAL IV SCH ×4 (00:09→17:48)
[2021-07-25] MEDS: IPRATROPIUM/ALBUTEROL 0.5-3(2.5)MG/3ML NEB HHN SCH ×5 (00:45→21:15)
[2021-07-25] MEDS: PIPERACILLIN/TAZOBACTAM 3.375 G in DEXTROSE 5% WATER 50 ML IV SCH ×3 (06:29→22:21)
[2021-07-25] MEDS: SODIUM CHLORIDE 0.9% 1,000 ML IV SCH ×3 (06:39→20:40)
[2021-07-25 08:04] LABS: BG BASE EXCESS 3.5 mmol/L (-2.0-2.0); BG CARBOXYHEMOGLOBIN 0.3 % (0.5-1.5); BG HCO3 ACT 28.6 mmol/L (22.0-26.0); BG METHEMOGLOBIN 0.2 % (0.0-1.5); BG OXYHEMOGLOBIN 98.5 % (94.0-97.0); BG PCO2 45.8 mmHg (35.0-45.0); BG PH 7.414 (7.350-7.450); BG PO2 144.4 mmHg (75.0-100.0); BG SAMPLE SITE RIGHT BRACHIAL; BG TOTAL HEMOGLOBIN 11.1 g/dL (12.0-18.0); BG VENT MODE VENT - AC
[2021-07-25] MEDS: FOLIC ACID/VITAMIN B COMP W-C TABLET PO SCH (08:58)
[2021-07-25] MEDS: THIAMINE HCL 100MG TABLET PO SCH (08:58)
[2021-07-25] MEDS: DOCUSATE SODIUM SUGAR FREE 100MG/10ML UDC NG SCH (08:58)
[2021-07-25] MEDS: MULTIVITAMINS,THER W-MINERALS TABLET PO SCH (08:58)
[2021-07-25] MEDS ORDERED: ENOXAPARIN 30MG/0.3ML SYR SUBCUT SCH (09:00)
[2021-07-25] MEDS: FAMOTIDINE 20MG/2ML VIAL IV SCH ×2 (09:15→20:37)
[2021-07-25 11:32] LABS: HEMATOCRIT. 35.4 % (42.0-52.0); HEMOGLOBIN. 11.3 g/dL (14.0-18.0); MEAN CORPUSCULAR HEMOGLOBIN 28.7 pg (28.0-32.0); MEAN CORPUSCULAR VOLUME 90.1 fL (80.0-94.0); MEAN PLATELET VOLUME 8.2 fl (7.4-10.4); PLATELET 77 x1000/uL (130-400); RED BLOOD CELL COUNT 3.93 mill/uL (4.7-6.1); RED CELL DISTRIBUTION WIDTH 16.3 % (11.6-14.6)
[2021-07-25 11:34] LABS: CHLORIDE 103 mEq/L (98-107)
[2021-07-25 13:23] LABS: PLATELET ESTIMATE DECREASED
[2021-07-25] MEDS: FENTANYL CITRATE/PF 2,500 MCG in SODIUM CHLORIDE 0.9% 200 ML IV PRN (18:47)
[2021-07-25] MEDS: BISACODYL 10MG SUPP PR PRN (20:38)
[2021-07-26] VITALS (84 sets, daily range): BP systolic 88–208; BP diastolic 54–131
[2021-07-26] MEDS: METHYLPREDNISOLONE SOD SUCC 125 MG/2 ML VIAL IV SCH ×4 (00:15→18:00)
[2021-07-26] MEDS: IPRATROPIUM/ALBUTEROL 0.5-3(2.5)MG/3ML NEB HHN SCH ×5 (00:41→20:10)
[2021-07-26 06:21] LABS: CHLORIDE 106 mEq/L (98-107)
[2021-07-26] MEDS: PIPERACILLIN/TAZOBACTAM 3.375 G in DEXTROSE 5% WATER 50 ML IV SCH ×3 (06:28→20:43)
[2021-07-26] MEDS: SODIUM CHLORIDE 0.9% 1,000 ML IV SCH (07:54)
[2021-07-26] MEDS: DOCUSATE SODIUM SUGAR FREE 100MG/10ML UDC NG SCH (08:43)
[2021-07-26] MEDS: MULTIVITAMINS,THER W-MINERALS TABLET PO SCH (08:43)
[2021-07-26] MEDS: FOLIC ACID/VITAMIN B COMP W-C TABLET PO SCH (08:43)
[2021-07-26] MEDS: FAMOTIDINE 20MG/2ML VIAL IV SCH ×2 (08:43→20:40)
[2021-07-26] MEDS: THIAMINE HCL 100MG TABLET PO SCH (08:43)
[2021-07-26] MEDS: VANCOMYCIN 500MG PREMIX 100 ML IV SCH ×2 (09:00→20:40)
[2021-07-26 11:24] LABS: BG BASE EXCESS 3.3 mmol/L (-2.0-2.0); BG CARBOXYHEMOGLOBIN 0.3 % (0.5-1.5); BG DEOXYHEMOGLOBIN 1.1 % (0.0-5.0); BG FRACTION INSPIRED OXYGEN 35; BG HCO3 ACT 28.5 mmol/L (22.0-26.0); BG METHEMOGLOBIN 0.3 % (0.0-1.5); BG OXYGEN SATURATION 98.9 % (92.0-98.5); BG OXYHEMOGLOBIN 98.3 % (94.0-97.0); BG PCO2 46.2 mmHg (35.0-45.0); BG PH 7.408 (7.350-7.450); BG PO2 149.8 mmHg (75.0-100.0); BG SAMPLE SITE RIGHT RADIAL; BG TOTAL HEMOGLOBIN 11.6 g/dL (12.0-18.0); BG VENT MODE VENT - AC
[2021-07-26] MEDS: FENTANYL CITRATE/PF 2,500 MCG in SODIUM CHLORIDE 0.9% 200 ML IV PRN (19:15)
[2021-07-26] MEDS: HYDRALAZINE 20MG/ML VIAL IV PRN (20:44)
[2021-07-27] VITALS (96 sets, daily range): BP systolic 75–182; BP diastolic 50–133
[2021-07-27] MEDS: METHYLPREDNISOLONE SOD SUCC 125 MG/2 ML VIAL IV SCH ×4 (00:43→17:48)
[2021-07-27] MEDS: SODIUM CHLORIDE 0.9% 1,000 ML IV SCH ×2 (00:44→13:10)
[2021-07-27] MEDS: IPRATROPIUM/ALBUTEROL 0.5-3(2.5)MG/3ML NEB HHN SCH ×6 (04:05→21:08)
[2021-07-27] MEDS: PIPERACILLIN/TAZOBACTAM 3.375 G in DEXTROSE 5% WATER 50 ML IV SCH ×3 (05:48→21:39)
[2021-07-27] MEDS: FAMOTIDINE 20MG/2ML VIAL IV SCH ×2 (08:36→21:39)
[2021-07-27] MEDS: THIAMINE HCL 100MG TABLET PO SCH (08:36)
[2021-07-27] MEDS: DOCUSATE SODIUM SUGAR FREE 100MG/10ML UDC NG SCH (08:36)
[2021-07-27] MEDS: VANCOMYCIN 500MG PREMIX 100 ML IV SCH ×2 (08:36→21:39)
[2021-07-27] MEDS: FOLIC ACID/VITAMIN B COMP W-C TABLET PO SCH (08:36)
[2021-07-27] MEDS: MULTIVITAMINS,THER W-MINERALS TABLET PO SCH (08:36)
[2021-07-27 10:02] LABS: HEMATOCRIT. 32.4 % (42.0-52.0); HEMOGLOBIN. 10.8 g/dL (14.0-18.0); MEAN CORPUSCULAR HEMOGLOBIN 29.4 pg (28.0-32.0); MEAN CORPUSCULAR VOLUME 88.3 fL (80.0-94.0); MEAN PLATELET VOLUME 7.8 fl (7.4-10.4); PLATELET 115 x1000/uL (130-400); RED BLOOD CELL COUNT 3.67 mill/uL (4.7-6.1); RED CELL DISTRIBUTION WIDTH 16.6 % (11.6-14.6)
[2021-07-27 10:06] LABS: CHLORIDE 105 mEq/L (98-107)
[2021-07-27 10:59] LABS: PLATELET ESTIMATE SLIGHTLY DECREASED
[2021-07-27] MEDS: FENTANYL CITRATE/PF 2,500 MCG in SODIUM CHLORIDE 0.9% 200 ML IV PRN (13:49)
[2021-07-27] MEDS: HYDRALAZINE 20MG/ML VIAL IV PRN (15:47)
[2021-07-28] VITALS (99 sets, daily range): BP systolic 83–173; BP diastolic 53–105
[2021-07-28] MEDS: METHYLPREDNISOLONE SOD SUCC 125 MG/2 ML VIAL IV SCH ×3 (00:39→11:29)
[2021-07-28] MEDS: IPRATROPIUM/ALBUTEROL 0.5-3(2.5)MG/3ML NEB HHN SCH ×6 (00:51→21:15)
[2021-07-28] MEDS: SODIUM CHLORIDE 0.9% 1,000 ML IV SCH ×2 (02:24→16:02)
[2021-07-28] MEDS: PIPERACILLIN/TAZOBACTAM 3.375 G in DEXTROSE 5% WATER 50 ML IV SCH ×3 (05:47→21:10)
[2021-07-28] MEDS: FENTANYL CITRATE/PF 2,500 MCG in SODIUM CHLORIDE 0.9% 200 ML IV PRN ×2 (05:48→21:24)
[2021-07-28] MEDS: HYDRALAZINE 20MG/ML VIAL IV PRN ×2 (06:51→20:05)
[2021-07-28] MEDS: FAMOTIDINE 20MG/2ML VIAL IV SCH ×2 (08:31→20:06)
[2021-07-28] MEDS: DOCUSATE SODIUM SUGAR FREE 100MG/10ML UDC NG SCH (08:31)
[2021-07-28] MEDS: FOLIC ACID/VITAMIN B COMP W-C TABLET PO SCH (08:31)
[2021-07-28] MEDS: THIAMINE HCL 100MG TABLET PO SCH (08:31)
[2021-07-28] MEDS: MULTIVITAMINS,THER W-MINERALS TABLET PO SCH (08:31)
[2021-07-28] MEDS: VANCOMYCIN 500MG PREMIX 100 ML IV SCH ×2 (08:31→20:06)
[2021-07-28 08:49] LABS: BG BASE EXCESS -1.2 mmol/L (-2.0-2.0); BG CARBOXYHEMOGLOBIN 0.6 % (0.5-1.5); BG DEOXYHEMOGLOBIN 2.7 % (0.0-5.0); BG HCO3 ACT 26.7 mmol/L (22.0-26.0); BG METHEMOGLOBIN 0.3 % (0.0-1.5); BG OXYGEN SATURATION 97.3 % (92.0-98.5); BG OXYHEMOGLOBIN 96.4 % (94.0-97.0); BG PCO2 58.6 mmHg (35.0-45.0); BG PH 7.277 (7.350-7.450); BG SAMPLE SITE RIGHT RADIAL; BG TOTAL HEMOGLOBIN 14.1 g/dL (12.0-18.0); BG VENT MODE VENT - AC
[2021-07-28] MEDS: METHYLPREDNISOLONE SOD SUCC 40 MG/ML VIAL IV SCH (20:06)
[2021-07-29] VITALS (100 sets, daily range): BP systolic 77–181; BP diastolic 48–120
[2021-07-29] MEDS: IPRATROPIUM/ALBUTEROL 0.5-3(2.5)MG/3ML NEB HHN SCH ×8 (01:20→20:53)
[2021-07-29] MEDS: METHYLPREDNISOLONE SOD SUCC 40 MG/ML VIAL IV SCH ×3 (03:22→20:55)
[2021-07-29] MEDS: PHENYLEPHRINE 100 MG in DEXT 5% WATER 240 ML IV PRN (03:57)
[2021-07-29 05:28] LABS: HEMATOCRIT. 37.1 % (42.0-52.0); HEMOGLOBIN. 11.8 g/dL (14.0-18.0); MEAN CORPUSCULAR HEMOGLOBIN 28.4 pg (28.0-32.0); MEAN CORPUSCULAR VOLUME 89.6 fL (80.0-94.0); MEAN PLATELET VOLUME 8.4 fl (7.4-10.4); PLATELET 177 x1000/uL (130-400); RED BLOOD CELL COUNT 4.14 mill/uL (4.7-6.1); RED CELL DISTRIBUTION WIDTH 16.9 % (11.6-14.6)
[2021-07-29] MEDS: PIPERACILLIN/TAZOBACTAM 3.375 G in DEXTROSE 5% WATER 50 ML IV SCH ×3 (05:28→21:00)
[2021-07-29] MEDS: SODIUM CHLORIDE 0.9% 1,000 ML IV SCH ×2 (05:29→18:20)
[2021-07-29 05:41] LABS: CHLORIDE 106 mEq/L (98-107)
[2021-07-29] MEDS: THIAMINE HCL 100MG TABLET PO SCH (08:58)
[2021-07-29] MEDS: DOCUSATE SODIUM SUGAR FREE 100MG/10ML UDC NG SCH (08:58)
[2021-07-29] MEDS: MULTIVITAMINS,THER W-MINERALS TABLET PO SCH (08:58)
[2021-07-29] MEDS: FAMOTIDINE 20MG/2ML VIAL IV SCH ×2 (08:58→20:59)
[2021-07-29] MEDS: FOLIC ACID/VITAMIN B COMP W-C TABLET PO SCH (09:03)
[2021-07-29] MEDS: VANCOMYCIN 500MG PREMIX 100 ML IV SCH ×2 (09:03→20:56)
[2021-07-29 09:11] LABS: BG BASE EXCESS -1.9 mmol/L (-2.0-2.0); BG CARBOXYHEMOGLOBIN 0.3 % (0.5-1.5); BG DEOXYHEMOGLOBIN 1.3 % (0.0-5.0); BG FRACTION INSPIRED OXYGEN 35; BG HCO3 ACT 25.3 mmol/L (22.0-26.0); BG METHEMOGLOBIN 0.3 % (0.0-1.5); BG OXYGEN SATURATION 98.7 % (92.0-98.5); BG OXYHEMOGLOBIN 98.1 % (94.0-97.0); BG PCO2 53.6 mmHg (35.0-45.0); BG PH 7.292 (7.350-7.450); BG PO2 142.1 mmHg (75.0-100.0); BG SAMPLE SITE RIGHT RADIAL; BG TOTAL HEMOGLOBIN 12.5 g/dL (12.0-18.0); BG VENT MODE VENT - AC
[2021-07-29 09:57] LABS: PLATELET ESTIMATE NORMAL
[2021-07-29] MEDS: HYDRALAZINE 20MG/ML VIAL IV PRN (10:46)
[2021-07-29] MEDS: FENTANYL CITRATE/PF 2,500 MCG in SODIUM CHLORIDE 0.9% 200 ML IV PRN (14:37)
[2021-07-29] MEDS: ONDANSETRON HCL 4MG/2ML INJ IV PRN (20:56)
[2021-07-29] MEDS: ACETAMINOPHEN 325MG TABLET PO PRN (20:56)
[2021-07-30] VITALS (73 sets, daily range): BP systolic 71–174; BP diastolic 45–125
[2021-07-30] MEDS: IPRATROPIUM/ALBUTEROL 0.5-3(2.5)MG/3ML NEB HHN SCH ×6 (00:56→19:54)
[2021-07-30] MEDS: METHYLPREDNISOLONE SOD SUCC 40 MG/ML VIAL IV SCH ×3 (03:39→21:31)
[2021-07-30] MEDS: FENTANYL CITRATE/PF 2,500 MCG in SODIUM CHLORIDE 0.9% 200 ML IV PRN (03:40)
[2021-07-30] MEDS: PIPERACILLIN/TAZOBACTAM 3.375 G in DEXTROSE 5% WATER 50 ML IV SCH ×3 (05:07→21:31)
[2021-07-30] MEDS: SODIUM CHLORIDE 0.9% 1,000 ML IV SCH ×2 (07:55→21:31)
[2021-07-30 08:13] LABS: BG BASE EXCESS -4.6 mmol/L (-2.0-2.0); BG CARBOXYHEMOGLOBIN 0.3 % (0.5-1.5); BG DEOXYHEMOGLOBIN 7.5 % (0.0-5.0); BG HCO3 ACT 25.9 mmol/L (22.0-26.0); BG METHEMOGLOBIN 0.1 % (0.0-1.5); BG OXYGEN SATURATION 92.5 % (92.0-98.5); BG OXYHEMOGLOBIN 92.1 % (94.0-97.0); BG PCO2 76.7 mmHg (35.0-45.0); BG PH 7.146 (7.350-7.450); BG PO2 72.8 mmHg (75.0-100.0); BG SAMPLE SITE RIGHT RADIAL; BG VENT MODE VENT - SIMV
[2021-07-30] MEDS: FOLIC ACID/VITAMIN B COMP W-C TABLET PO SCH (08:47)
[2021-07-30] MEDS: FAMOTIDINE 20MG/2ML VIAL IV SCH (08:47)
[2021-07-30] MEDS: THIAMINE HCL 100MG TABLET PO SCH (08:47)
[2021-07-30] MEDS: DOCUSATE SODIUM SUGAR FREE 100MG/10ML UDC NG SCH (08:47)
[2021-07-30] MEDS: MULTIVITAMINS,THER W-MINERALS TABLET PO SCH (08:47)
[2021-07-30] MEDS: VANCOMYCIN 500MG PREMIX 100 ML IV SCH ×2 (08:52→21:31)
[2021-07-30] MEDS: PANTOPRAZOLE SODIUM 40 MG/VIAL IV SCH (16:11)
[2021-07-30 18:04] LABS: TOTAL IRON BINDING CAPACITY 230 ug/dL (250-450)
[2021-07-30 18:28] LABS: VITAMIN B12 SERUM 1313 pg/mL (211-911)
[2021-07-30 18:29] LABS: FOLIC ACID (FOLATE) SERUM > 20.00 ng/mL (>5.38)
[2021-07-30] MEDS: ONDANSETRON HCL 4MG/2ML INJ IV PRN (21:31)
[2021-07-30] MEDS: ACETAMINOPHEN 325MG TABLET PO PRN (21:32)
[2021-07-31] VITALS (90 sets, daily range): BP systolic 65–181; BP diastolic 46–133
[2021-07-31] MEDS: FENTANYL CITRATE/PF 2,500 MCG in SODIUM CHLORIDE 0.9% 200 ML IV PRN ×3 (00:55→21:41)
[2021-07-31] MEDS: IPRATROPIUM/ALBUTEROL 0.5-3(2.5)MG/3ML NEB HHN SCH ×4 (01:06→20:17)
[2021-07-31] MEDS ORDERED: PROPOFOL 10MG/ML 100ML 100 ML IV PRN (04:00)
[2021-07-31] MEDS: METHYLPREDNISOLONE SOD SUCC 40 MG/ML VIAL IV SCH ×3 (05:30→21:12)
[2021-07-31] MEDS: PIPERACILLIN/TAZOBACTAM 3.375 G in DEXTROSE 5% WATER 50 ML IV SCH ×3 (05:30→21:12)
[2021-07-31 05:33] LABS: HEMATOCRIT. 21.6 % (42.0-52.0); HEMOGLOBIN. 7.3 g/dL (14.0-18.0); MEAN CORPUSCULAR HEMOGLOBIN 30.2 pg (28.0-32.0); MEAN CORPUSCULAR VOLUME 89.2 fL (80.0-94.0); PLATELET 122 x1000/uL (130-400); RED BLOOD CELL COUNT 2.43 mill/uL (4.7-6.1); RED CELL DISTRIBUTION WIDTH 17.2 % (11.6-14.6)
[2021-07-31 05:41] LABS: CHLORIDE 109 mEq/L (98-107)
[2021-07-31] MEDS: VANCOMYCIN 500MG PREMIX 100 ML IV SCH ×2 (08:34→20:08)
[2021-07-31] MEDS: MULTIVITAMINS,THER W-MINERALS TABLET PO SCH (08:34)
[2021-07-31] MEDS: PANTOPRAZOLE SODIUM 40 MG/VIAL IV SCH ×2 (08:34→17:25)
[2021-07-31] MEDS: THIAMINE HCL 100MG TABLET PO SCH (08:34)
[2021-07-31] MEDS: DOCUSATE SODIUM SUGAR FREE 100MG/10ML UDC NG SCH (08:34)
[2021-07-31] MEDS: FOLIC ACID/VITAMIN B COMP W-C TABLET PO SCH (08:34)
[2021-07-31] MEDS: HYDRALAZINE 20MG/ML VIAL IV PRN (08:35)
[2021-07-31] MEDS ORDERED: LORAZEPAM 2MG/ML CPJ IV PRN (10:15)
[2021-07-31] MEDS: SODIUM CHLORIDE 0.9% 1,000 ML IV SCH (11:13)
[2021-07-31 12:23] LABS: PLATELET ESTIMATE SLIGHTLY DECREASED
[2021-07-31] MEDS: ACETAMINOPHEN 325MG TABLET PO PRN (20:08)
[2021-07-31] MEDS: PHENYLEPHRINE 100 MG in DEXT 5% WATER 240 ML IV PRN (21:13)
[2021-08-01] VITALS (89 sets, daily range): BP systolic 59–174; BP diastolic 42–102
[2021-08-01] MEDS: IPRATROPIUM/ALBUTEROL 0.5-3(2.5)MG/3ML NEB HHN SCH ×6 (00:18→20:47)
[2021-08-01] MEDS: SODIUM CHLORIDE 0.9% 1,000 ML IV SCH ×2 (00:40→18:32)
[2021-08-01] MEDS: METHYLPREDNISOLONE SOD SUCC 40 MG/ML VIAL IV SCH ×3 (05:34→21:07)
[2021-08-01] MEDS: PIPERACILLIN/TAZOBACTAM 3.375 G in DEXTROSE 5% WATER 50 ML IV SCH ×3 (05:34→21:08)
[2021-08-01 05:35] LABS: HEMATOCRIT. 32.5 % (42.0-52.0); HEMOGLOBIN. 10.7 g/dL (14.0-18.0); MEAN CORPUSCULAR HEMOGLOBIN 29.2 pg (28.0-32.0); MEAN CORPUSCULAR VOLUME 88.5 fL (80.0-94.0); MEAN PLATELET VOLUME 8.5 fl (7.4-10.4); PLATELET 193 x1000/uL (130-400); RED BLOOD CELL COUNT 3.67 mill/uL (4.7-6.1); RED CELL DISTRIBUTION WIDTH 17.7 % (11.6-14.6)
[2021-08-01 05:38] LABS: INR 1.1; PROTHROMBIN TIME 11.8 sec (9.6-11.0)
[2021-08-01 06:23] LABS: CHLORIDE 108 mEq/L (98-107)
[2021-08-01 08:54] LABS: PLATELET ESTIMATE NORMAL
[2021-08-01] MEDS: PANTOPRAZOLE SODIUM 40 MG/VIAL IV SCH ×2 (09:29→18:32)
[2021-08-01] MEDS: DOCUSATE SODIUM SUGAR FREE 100MG/10ML UDC NG SCH (09:29)
[2021-08-01] MEDS: MULTIVITAMINS,THER W-MINERALS TABLET PO SCH (09:30)
[2021-08-01] MEDS: FOLIC ACID/VITAMIN B COMP W-C TABLET PO SCH (09:30)
[2021-08-01] MEDS: VANCOMYCIN 500MG PREMIX 100 ML IV SCH ×2 (09:30→21:07)
[2021-08-01] MEDS: THIAMINE HCL 100MG TABLET PO SCH (09:30)
[2021-08-01] MEDS: LORAZEPAM 2MG/ML CPJ IV PRN (16:22)
[2021-08-01 17:50] LABS: FERRITIN 138 ng/mL (22-322)
[2021-08-01] MEDS: ONDANSETRON HCL 4MG/2ML INJ IV PRN (21:07)
[2021-08-01] MEDS: ACETAMINOPHEN 325MG TABLET PO PRN (21:08)
[2021-08-02] VITALS (94 sets, daily range): BP systolic 80–185; BP diastolic 53–142
[2021-08-02] MEDS: IPRATROPIUM/ALBUTEROL 0.5-3(2.5)MG/3ML NEB HHN SCH ×6 (00:28→21:37)
[2021-08-02] MEDS: MORPHINE SULFATE 2 MG/ML CPJ (NOT FOR IM USE) IV PRN ×3 (02:32→22:36)
[2021-08-02] MEDS: SODIUM CHLORIDE 0.9% 1,000 ML IV SCH ×3 (03:38→22:36)
[2021-08-02] MEDS: LORAZEPAM 2MG/ML CPJ IV PRN ×4 (04:39→22:34)
[2021-08-02] MEDS: METHYLPREDNISOLONE SOD SUCC 40 MG/ML VIAL IV SCH ×3 (05:32→22:35)
[2021-08-02] MEDS: BISACODYL 10MG SUPP PR PRN (08:12)
[2021-08-02] MEDS: THIAMINE HCL 100MG TABLET PO SCH (08:12)
[2021-08-02] MEDS: PANTOPRAZOLE SODIUM 40 MG/VIAL IV SCH ×2 (08:12→16:00)
[2021-08-02] MEDS: FOLIC ACID/VITAMIN B COMP W-C TABLET PO SCH (08:12)
[2021-08-02] MEDS: MULTIVITAMINS,THER W-MINERALS TABLET PO SCH (08:12)
[2021-08-02] MEDS: DOCUSATE SODIUM SUGAR FREE 100MG/10ML UDC NG SCH (08:12)
[2021-08-02 09:41] LABS: BG BASE EXCESS -2.6 mmol/L (-2.0-2.0); BG CARBOXYHEMOGLOBIN 0.3 % (0.5-1.5); BG DEOXYHEMOGLOBIN 4.5 % (0.0-5.0); BG FRACTION INSPIRED OXYGEN 35; BG HCO3 ACT 23.6 mmol/L (22.0-26.0); BG METHEMOGLOBIN 0.3 % (0.0-1.5); BG OXYGEN SATURATION 95.5 % (92.0-98.5); BG OXYHEMOGLOBIN 94.9 % (94.0-97.0); BG PCO2 46.8 mmHg (35.0-45.0); BG PO2 84.1 mmHg (75.0-100.0); BG SAMPLE SITE RIGHT RADIAL; BG TOTAL HEMOGLOBIN 11.1 g/dL (12.0-18.0); BG TOTAL RESPIRATORY RATE 18 b/min; BG VENT MODE VENT - AC
[2021-08-02] MEDS: PIPERACILLIN/TAZOBACTAM 3.375 G in DEXTROSE 5% WATER 50 ML IV SCH ×2 (14:07→22:34)
[2021-08-02] MEDS: VANCOMYCIN 500MG PREMIX 100 ML IV SCH (14:08)
[2021-08-02] MEDS: ACETAMINOPHEN 325MG TABLET PO PRN (22:35)
[2021-08-02] MEDS: ONDANSETRON HCL 4MG/2ML INJ IV PRN (22:35)
[2021-08-03] VITALS (88 sets, daily range): BP systolic 82–157; BP diastolic 49–99
[2021-08-03] MEDS: IPRATROPIUM/ALBUTEROL 0.5-3(2.5)MG/3ML NEB HHN SCH ×6 (00:58→21:05)
[2021-08-03] MEDS: VANCOMYCIN 500MG PREMIX 100 ML IV SCH ×2 (02:00→14:58)
[2021-08-03] MEDS: METHYLPREDNISOLONE SOD SUCC 40 MG/ML VIAL IV SCH ×3 (05:15→22:28)
[2021-08-03 05:34] LABS: HEMATOCRIT. 31.7 % (42.0-52.0); HEMOGLOBIN. 10.5 g/dL (14.0-18.0); MEAN CORPUSCULAR HEMOGLOBIN 29.2 pg (28.0-32.0); MEAN CORPUSCULAR VOLUME 88.2 fL (80.0-94.0); MEAN PLATELET VOLUME 8.5 fl (7.4-10.4); PLATELET 190 x1000/uL (130-400); RED CELL DISTRIBUTION WIDTH 17.9 % (11.6-14.6)
[2021-08-03 05:51] LABS: CHLORIDE 110 mEq/L (98-107)
[2021-08-03] MEDS: PIPERACILLIN/TAZOBACTAM 3.375 G in DEXTROSE 5% WATER 50 ML IV SCH ×3 (06:24→22:28)
[2021-08-03] MEDS ORDERED: NALOXONE HCL 0.4MG/ML VIAL IV PRN (08:00)
[2021-08-03] MEDS: ASCORBIC ACID 500 MG TABLET PO SCH (09:06)
[2021-08-03] MEDS: PANTOPRAZOLE SODIUM 40 MG/VIAL IV SCH ×2 (09:06→16:49)
[2021-08-03] MEDS: ZINC SULFATE 220 MG ( 50 ) CAPSULE PO SCH (09:06)
[2021-08-03] MEDS: LORAZEPAM 2MG/ML CPJ IV PRN ×2 (09:06→23:38)
[2021-08-03] MEDS: DOCUSATE SODIUM SUGAR FREE 100MG/10ML UDC NG SCH (09:06)
[2021-08-03 13:21] LABS: PLATELET ESTIMATE NORMAL
[2021-08-03] MEDS: SODIUM CHLORIDE 0.9% 1,000 ML IV SCH (16:41)
[2021-08-04] VITALS (92 sets, daily range): BP systolic 77–152; BP diastolic 53–98
[2021-08-04] MEDS: IPRATROPIUM/ALBUTEROL 0.5-3(2.5)MG/3ML NEB HHN SCH ×6 (00:48→20:08)
[2021-08-04] MEDS: VANCOMYCIN 500MG PREMIX 100 ML IV SCH ×2 (02:09→19:00)
[2021-08-04] MEDS: PIPERACILLIN/TAZOBACTAM 3.375 G in DEXTROSE 5% WATER 50 ML IV SCH ×3 (06:10→22:31)
[2021-08-04] MEDS: METHYLPREDNISOLONE SOD SUCC 40 MG/ML VIAL IV SCH ×3 (06:11→22:31)
[2021-08-04 06:50] LABS: HEMATOCRIT. 31.5 % (42.0-52.0); HEMOGLOBIN. 10.3 g/dL (14.0-18.0); MEAN CORPUSCULAR HEMOGLOBIN 29.2 pg (28.0-32.0); MEAN CORPUSCULAR VOLUME 89.2 fL (80.0-94.0); MEAN PLATELET VOLUME 7.8 fl (7.4-10.4); PLATELET 142 x1000/uL (130-400); RED BLOOD CELL COUNT 3.53 mill/uL (4.7-6.1)
[2021-08-04 06:55] LABS: CHLORIDE 111 mEq/L (98-107)
[2021-08-04] MEDS: SODIUM CHLORIDE 0.9% 1,000 ML IV SCH ×2 (08:40→22:31)
[2021-08-04] MEDS: DOCUSATE SODIUM SUGAR FREE 100MG/10ML UDC NG SCH (09:26)
[2021-08-04] MEDS: PANTOPRAZOLE SODIUM 40 MG/VIAL IV SCH ×2 (09:26→16:18)
[2021-08-04] MEDS: ZINC SULFATE 220 MG ( 50 ) CAPSULE PO SCH (09:26)
[2021-08-04] MEDS: ASCORBIC ACID 500 MG TABLET PO SCH (09:26)
[2021-08-04 12:25] LABS: BG BASE EXCESS -0.5 mmol/L (-2.0-2.0); BG CARBOXYHEMOGLOBIN 0.3 % (0.5-1.5); BG DEOXYHEMOGLOBIN 1.9 % (0.0-5.0); BG FRACTION INSPIRED OXYGEN 35; BG HCO3 ACT 25.1 mmol/L (22.0-26.0); BG METHEMOGLOBIN 0.3 % (0.0-1.5); BG OXYGEN SATURATION 98.1 % (92.0-98.5); BG OXYHEMOGLOBIN 97.5 % (94.0-97.0); BG PCO2 45.1 mmHg (35.0-45.0); BG PH 7.363 (7.350-7.450); BG PO2 120.2 mmHg (75.0-100.0); BG SAMPLE SITE RIGHT RADIAL; BG TOTAL HEMOGLOBIN 10.8 g/dL (12.0-18.0); BG VENT MODE VENT - AC
[2021-08-04 15:29] LABS: PLATELET ESTIMATE NORMAL
[2021-08-04] MEDS: LORAZEPAM 2MG/ML CPJ IV PRN ×2 (15:34→19:37)
[2021-08-04] MEDS: MORPHINE SULFATE 2 MG/ML CPJ (NOT FOR IM USE) IV PRN (16:17)
[2021-08-05] VITALS (63 sets, daily range): BP systolic 96–162; BP diastolic 56–100
[2021-08-05] MEDS: IPRATROPIUM/ALBUTEROL 0.5-3(2.5)MG/3ML NEB HHN SCH ×6 (00:26→20:50)
[2021-08-05 05:54] LABS: HEMATOCRIT. 29.7 % (42.0-52.0); HEMOGLOBIN. 9.8 g/dL (14.0-18.0); MEAN CORPUSCULAR HEMOGLOBIN 29.1 pg (28.0-32.0); MEAN CORPUSCULAR VOLUME 88.8 fL (80.0-94.0); MEAN PLATELET VOLUME 8.8 fl (7.4-10.4); PLATELET 164 x1000/uL (130-400); RED BLOOD CELL COUNT 3.35 mill/uL (4.7-6.1); RED CELL DISTRIBUTION WIDTH 17.8 % (11.6-14.6)
[2021-08-05] MEDS: PIPERACILLIN/TAZOBACTAM 3.375 G in DEXTROSE 5% WATER 50 ML IV SCH ×3 (06:17→22:19)
[2021-08-05 06:18] LABS: CHLORIDE 111 mEq/L (98-107)
[2021-08-05] MEDS: METHYLPREDNISOLONE SOD SUCC 40 MG/ML VIAL IV SCH ×3 (06:22→21:33)
[2021-08-05 06:24] LABS: PHOSPHORUS 1.9 mg/dL (2.5-4.9)
[2021-08-05] MEDS: ZINC SULFATE 220 MG ( 50 ) CAPSULE PO SCH (08:10)
[2021-08-05] MEDS: DOCUSATE SODIUM SUGAR FREE 100MG/10ML UDC NG SCH (08:10)
[2021-08-05] MEDS: PANTOPRAZOLE SODIUM 40 MG/VIAL IV SCH ×2 (08:10→18:06)
[2021-08-05] MEDS: ASCORBIC ACID 500 MG TABLET PO SCH (08:10)
[2021-08-05] MEDS: VANCOMYCIN 500MG PREMIX 100 ML IV SCH (08:10)
[2021-08-05] MEDS: SODIUM CHLORIDE 0.9% 1,000 ML IV SCH (11:11)
[2021-08-05 11:26] LABS: PLATELET ESTIMATE NORMAL
[2021-08-06] VITALS (39 sets, daily range): BP systolic 76–157; BP diastolic 48–96
[2021-08-06] MEDS: SODIUM CHLORIDE 0.9% 1,000 ML IV SCH ×2 (00:40→14:53)
[2021-08-06] MEDS: IPRATROPIUM/ALBUTEROL 0.5-3(2.5)MG/3ML NEB HHN SCH ×6 (04:10→20:37)
[2021-08-06] MEDS: METHYLPREDNISOLONE SOD SUCC 40 MG/ML VIAL IV SCH ×3 (06:17→21:22)
[2021-08-06] MEDS: PIPERACILLIN/TAZOBACTAM 3.375 G in DEXTROSE 5% WATER 50 ML IV SCH ×3 (06:17→22:58)
[2021-08-06] MEDS: DOCUSATE SODIUM SUGAR FREE 100MG/10ML UDC NG SCH (09:00)
[2021-08-06] MEDS: ASCORBIC ACID 500 MG TABLET PO SCH (09:41)
[2021-08-06] MEDS: PANTOPRAZOLE SODIUM 40 MG/VIAL IV SCH ×2 (09:41→18:16)
[2021-08-06] MEDS: VANCOMYCIN 750MG PREMIX 150 ML IV SCH (09:41)
[2021-08-06] MEDS: ZINC SULFATE 220 MG ( 50 ) CAPSULE PO SCH (09:41)
[2021-08-07] VITALS (47 sets, daily range): BP systolic 73–151; BP diastolic 48–97
[2021-08-07] MEDS: IPRATROPIUM/ALBUTEROL 0.5-3(2.5)MG/3ML NEB HHN SCH ×5 (01:52→20:48)
[2021-08-07] MEDS: SODIUM CHLORIDE 0.9% 1,000 ML IV SCH ×2 (04:20→18:05)
[2021-08-07 06:03] LABS: HEMOGLOBIN. 10.9 g/dL (14.0-18.0); MEAN CORPUSCULAR HEMOGLOBIN 28.5 pg (28.0-32.0); MEAN CORPUSCULAR VOLUME 89.3 fL (80.0-94.0); MEAN PLATELET VOLUME 8.8 fl (7.4-10.4); PLATELET 173 x1000/uL (130-400); RED BLOOD CELL COUNT 3.81 mill/uL (4.7-6.1); RED CELL DISTRIBUTION WIDTH 18.2 % (11.6-14.6)
[2021-08-07 06:15] LABS: CHLORIDE 110 mEq/L (98-107)
[2021-08-07] MEDS: PIPERACILLIN/TAZOBACTAM 3.375 G in DEXTROSE 5% WATER 50 ML IV SCH ×3 (06:33→22:19)
[2021-08-07] MEDS: METHYLPREDNISOLONE SOD SUCC 40 MG/ML VIAL IV SCH ×2 (06:33→18:05)
[2021-08-07 07:56] LABS: PLATELET ESTIMATE NORMAL
[2021-08-07] MEDS: ASCORBIC ACID 500 MG TABLET PO SCH (08:21)
[2021-08-07] MEDS: DOCUSATE SODIUM SUGAR FREE 100MG/10ML UDC NG SCH (08:21)
[2021-08-07] MEDS: PANTOPRAZOLE SODIUM 40 MG/VIAL IV SCH ×2 (08:21→18:05)
[2021-08-07] MEDS: ZINC SULFATE 220 MG ( 50 ) CAPSULE PO SCH (08:21)
[2021-08-07] MEDS: VANCOMYCIN 750MG PREMIX 150 ML IV SCH (08:22)
[2021-08-07] MEDS: HYDROMORPHONE HCL/PF 2MG/ML CPJ IV PRN (18:27)
[2021-08-08] VITALS (46 sets, daily range): BP systolic 77–150; BP diastolic 54–96
[2021-08-08] MEDS: IPRATROPIUM/ALBUTEROL 0.5-3(2.5)MG/3ML NEB HHN SCH ×6 (00:16→20:41)
[2021-08-08 05:52] LABS: HEMATOCRIT. 30.9 % (42.0-52.0); HEMOGLOBIN. 9.9 g/dL (14.0-18.0); MEAN CORPUSCULAR HEMOGLOBIN 28.7 pg (28.0-32.0); MEAN CORPUSCULAR VOLUME 89.2 fL (80.0-94.0); MEAN PLATELET VOLUME 9.2 fl (7.4-10.4); PLATELET 150 x1000/uL (130-400); RED BLOOD CELL COUNT 3.46 mill/uL (4.7-6.1); RED CELL DISTRIBUTION WIDTH 18.5 % (11.6-14.6)
[2021-08-08 06:17] LABS: CHLORIDE 114 mEq/L (98-107)
[2021-08-08] MEDS: SODIUM CHLORIDE 0.9% 1,000 ML IV SCH ×2 (07:19→18:04)
[2021-08-08] MEDS: METHYLPREDNISOLONE SOD SUCC 40 MG/ML VIAL IV SCH ×2 (07:20→18:03)
[2021-08-08] MEDS: PANTOPRAZOLE SODIUM 40 MG/VIAL IV SCH ×2 (10:07→21:25)
[2021-08-08] MEDS: ASCORBIC ACID 500 MG TABLET PO SCH (10:07)
[2021-08-08] MEDS: ZINC SULFATE 220 MG ( 50 ) CAPSULE PO SCH (10:07)
[2021-08-08] MEDS: DOCUSATE SODIUM SUGAR FREE 100MG/10ML UDC NG SCH (10:07)
[2021-08-08] MEDS: HYDROMORPHONE HCL/PF 2MG/ML CPJ IV PRN (11:52)
[2021-08-08 16:25] LABS: PLATELET ESTIMATE NORMAL
[2021-08-09] VITALS (22 sets, daily range): BP systolic 81–152; BP diastolic 52–96
[2021-08-09] MEDS: IPRATROPIUM/ALBUTEROL 0.5-3(2.5)MG/3ML NEB HHN SCH ×6 (00:38→20:25)
[2021-08-09] MEDS: METHYLPREDNISOLONE SOD SUCC 40 MG/ML VIAL IV SCH ×2 (05:23→17:30)
[2021-08-09 05:54] LABS: HEMATOCRIT. 30.5 % (42.0-52.0); HEMOGLOBIN. 9.6 g/dL (14.0-18.0); MEAN CORPUSCULAR VOLUME 89.1 fL (80.0-94.0); PLATELET 133 x1000/uL (130-400); RED BLOOD CELL COUNT 3.42 mill/uL (4.7-6.1); RED CELL DISTRIBUTION WIDTH 18.4 % (11.6-14.6)
[2021-08-09 05:59] LABS: INR 1.1; PROTHROMBIN TIME 11.9 sec (9.6-11.0)
[2021-08-09 06:11] LABS: CHLORIDE 114 mEq/L (98-107)
[2021-08-09] MEDS: ZINC SULFATE 220 MG ( 50 ) CAPSULE PO SCH ×2 (08:40→08:52)
[2021-08-09] MEDS: DOCUSATE SODIUM SUGAR FREE 100MG/10ML UDC NG SCH ×2 (08:40→08:52)
[2021-08-09] MEDS: ASCORBIC ACID 500 MG TABLET PO SCH ×2 (08:40→08:52)
[2021-08-09] MEDS: PANTOPRAZOLE SODIUM 40 MG/VIAL IV SCH ×3 (08:40→22:18)
[2021-08-09] MEDS: SODIUM CHLORIDE 0.9% 1,000 ML IV SCH (08:44)
[2021-08-09 10:16] LABS: PLATELET ESTIMATE NORMAL
[2021-08-09] MEDS ORDERED: CEFAZOLIN 1000MG PREMIX 50 ML IV NR (11:30)
[2021-08-09] MEDS ORDERED: MIDAZOLAM HCL 5 MG/5 ML VIAL ONE (12:23)
[2021-08-09] MEDS ORDERED: FENTANYL CITRATE/PF 50MCG/ML 2ML VIAL ONE (12:24)
[2021-08-09] MEDS ORDERED: MIDAZOLAM HCL 5 MG/5 ML VIAL IV PRN (13:27)
[2021-08-09] MEDS: HYDROMORPHONE HCL/PF 2MG/ML CPJ IV PRN (17:56)
[2021-08-10] VITALS (16 sets, daily range): BP systolic 101–163; BP diastolic 65–92
[2021-08-10] MEDS: IPRATROPIUM/ALBUTEROL 0.5-3(2.5)MG/3ML NEB HHN SCH ×6 (00:31→20:00)
[2021-08-10] MEDS: METHYLPREDNISOLONE SOD SUCC 40 MG/ML VIAL IV SCH ×2 (06:09→16:59)
[2021-08-10 07:15] LABS: HEMATOCRIT. 32.3 % (42.0-52.0); HEMOGLOBIN. 10.5 g/dL (14.0-18.0); MEAN CORPUSCULAR HEMOGLOBIN 28.6 pg (28.0-32.0); MEAN CORPUSCULAR VOLUME 88.2 fL (80.0-94.0); MEAN PLATELET VOLUME 8.9 fl (7.4-10.4); PLATELET 141 x1000/uL (130-400); RED BLOOD CELL COUNT 3.67 mill/uL (4.7-6.1); RED CELL DISTRIBUTION WIDTH 18.3 % (11.6-14.6)
[2021-08-10 07:23] LABS: CHLORIDE 114 mEq/L (98-107)
[2021-08-10] MEDS: ASCORBIC ACID 500 MG TABLET PO SCH (08:26)
[2021-08-10] MEDS: PANTOPRAZOLE SODIUM 40 MG/VIAL IV SCH ×2 (08:27→20:26)
[2021-08-10] MEDS: DOCUSATE SODIUM SUGAR FREE 100MG/10ML UDC NG SCH (08:27)
[2021-08-10] MEDS: ZINC SULFATE 220 MG ( 50 ) CAPSULE PO SCH (08:31)
[2021-08-10 08:44] LABS: PLATELET ESTIMATE NORMAL
[2021-08-10] MEDS: HYDRALAZINE 20MG/ML VIAL IV PRN (20:22)
[2021-08-10] MEDS: HYDROMORPHONE HCL/PF 2MG/ML CPJ IV PRN (21:41)
[2021-08-11] VITALS (22 sets, daily range): BP systolic 108–150; BP diastolic 64–89
[2021-08-11] MEDS: IPRATROPIUM/ALBUTEROL 0.5-3(2.5)MG/3ML NEB HHN SCH ×6 (00:41→20:24)
[2021-08-11] MEDS: METHYLPREDNISOLONE SOD SUCC 40 MG/ML VIAL IV SCH ×2 (05:51→17:16)
[2021-08-11 07:59] LABS: HEMATOCRIT. 31.1 % (42.0-52.0); HEMOGLOBIN. 10.1 g/dL (14.0-18.0); MEAN CORPUSCULAR HEMOGLOBIN 28.9 pg (28.0-32.0); MEAN CORPUSCULAR VOLUME 89.4 fL (80.0-94.0); MEAN PLATELET VOLUME 9.4 fl (7.4-10.4); PLATELET 143 x1000/uL (130-400); RED BLOOD CELL COUNT 3.48 mill/uL (4.7-6.1); RED CELL DISTRIBUTION WIDTH 18.8 % (11.6-14.6)
[2021-08-11 08:09] LABS: CHLORIDE 115 mEq/L (98-107)
[2021-08-11] MEDS: PANTOPRAZOLE SODIUM 40 MG/VIAL IV SCH ×2 (08:43→20:39)
[2021-08-11] MEDS: ASCORBIC ACID 500 MG TABLET PO SCH (08:43)
[2021-08-11] MEDS: DOCUSATE SODIUM SUGAR FREE 100MG/10ML UDC NG SCH (08:43)
[2021-08-11] MEDS: ZINC SULFATE 220 MG ( 50 ) CAPSULE PO SCH (08:43)
[2021-08-11 10:35] LABS: PLATELET ESTIMATE NORMAL
[2021-08-11] MEDS: HYDROMORPHONE HCL/PF 2MG/ML CPJ IV PRN ×2 (13:02→20:39)
[2021-08-12] VITALS (19 sets, daily range): BP systolic 100–146; BP diastolic 49–87
[2021-08-12] MEDS: IPRATROPIUM/ALBUTEROL 0.5-3(2.5)MG/3ML NEB HHN SCH ×6 (00:29→20:37)
[2021-08-12] MEDS: METHYLPREDNISOLONE SOD SUCC 40 MG/ML VIAL IV SCH (06:15)
[2021-08-12 07:14] LABS: HEMATOCRIT. 30.5 % (42.0-52.0); HEMOGLOBIN. 10.1 g/dL (14.0-18.0); MEAN CORPUSCULAR HEMOGLOBIN 29.3 pg (28.0-32.0); MEAN CORPUSCULAR VOLUME 88.6 fL (80.0-94.0); MEAN PLATELET VOLUME 9.7 fl (7.4-10.4); PLATELET 139 x1000/uL (130-400); RED BLOOD CELL COUNT 3.44 mill/uL (4.7-6.1)
[2021-08-12 07:55] LABS: CHLORIDE 115 mEq/L (98-107)
[2021-08-12] MEDS: DOCUSATE SODIUM SUGAR FREE 100MG/10ML UDC NG SCH (09:00)
[2021-08-12] MEDS: ONDANSETRON HCL 4MG/2ML INJ IV PRN (09:20)
[2021-08-12] MEDS: ASCORBIC ACID 500 MG TABLET PO SCH (09:20)
[2021-08-12] MEDS: ZINC SULFATE 220 MG ( 50 ) CAPSULE PO SCH (09:20)
[2021-08-12] MEDS: PANTOPRAZOLE SODIUM 40 MG/VIAL IV SCH ×2 (09:20→21:03)
[2021-08-12] MEDS: HYDROMORPHONE HCL/PF 2MG/ML CPJ IV PRN ×2 (09:22→16:59)
[2021-08-12] MEDS: NYSTATIN/TRIAMCIN OINT 15GM TOP SCH ×2 (13:52→16:59)
[2021-08-12 14:13] LABS: PLATELET ESTIMATE NORMAL
[2021-08-13] VITALS (7 sets, daily range): BP systolic 43–132; BP diastolic 28–75
[2021-08-13] MEDS: IPRATROPIUM/ALBUTEROL 0.5-3(2.5)MG/3ML NEB HHN SCH ×3 (00:05→08:24)
[2021-08-13] MEDS: ACETAMINOPHEN 325MG TABLET PO PRN ×2 (01:38→05:48)
[2021-08-13] MEDS: ONDANSETRON HCL 4MG/2ML INJ IV PRN ×2 (01:38→05:48)
[2021-08-13 06:37] LABS: CHLORIDE 115 mEq/L (98-107)
[2021-08-13 06:42] LABS: HEMATOCRIT. 32.1 % (42.0-52.0); HEMOGLOBIN. 10.7 g/dL (14.0-18.0); MEAN CORPUSCULAR HEMOGLOBIN 29.4 pg (28.0-32.0); MEAN PLATELET VOLUME 8.9 fl (7.4-10.4); PLATELET 108 x1000/uL (130-400); RED BLOOD CELL COUNT 3.65 mill/uL (4.7-6.1); RED CELL DISTRIBUTION WIDTH 19.4 % (11.6-14.6)
[2021-08-13] MEDS ORDERED: METHYLPREDNISOLONE SOD SUCC 40 MG/ML VIAL IV SCH (09:00)
[2021-08-13] MEDS: DOCUSATE SODIUM SUGAR FREE 100MG/10ML UDC NG SCH (09:07)
[2021-08-13] MEDS: PANTOPRAZOLE SODIUM 40 MG/VIAL IV SCH (09:08)
[2021-08-13] MEDS: ZINC SULFATE 220 MG ( 50 ) CAPSULE PO SCH (09:08)
[2021-08-13] MEDS: ASCORBIC ACID 500 MG TABLET PO SCH (09:08)
[2021-08-13] MEDS: NYSTATIN/TRIAMCIN OINT 15GM TOP SCH (09:10)
[2021-08-13] MEDS ORDERED: EPINEPHRINE 10 MG in SODIUM CHLORIDE 0.9% 240 ML IV PRN (12:15)
[2021-08-13] MEDS ORDERED: MEPERIDINE HCL/PF 25MG/ML CPJ IV PRN (12:30)
[2021-08-13] MEDS ORDERED: PHENYLEPHRINE 50 MG in DEXT 5% WATER 240 ML IV PRN (12:30)
[2021-08-13] MEDS ORDERED: KCL 20MEQ/100ML PREMIX 100 ML IV PRN (12:30)
[2021-08-13] MEDS ORDERED: ACETAMINOPHEN 650MG SUPP PR PRN (12:30)
[2021-08-13] MEDS ORDERED: MAGNESIUM 2 G PREMIX 50 ML IV PRN (12:30)
[2021-08-13] MEDS ORDERED: MIDAZOLAM HCL 100 MG in SODIUM CHLORIDE 0.9% 80 ML IV PRN (12:30)
[2021-08-13] MEDS ORDERED: FENTANYL CITRATE/PF 2,500 MCG in SODIUM CHLORIDE 0.9% 200 ML IV PRN (12:30)
[2021-08-13] MEDS ORDERED: CALCIUM GLUCONATE 2,000 MG in DEXT 5% WATER 80 ML IV PRN (12:30)
[2021-08-13] MEDS ORDERED: CALCIUM CHLORIDE 1GM/10ML SYR IV ONE (12:34)
[2021-08-13] MEDS ORDERED: EPINEPHRINE 0.1MG/ML (1:10,000) 10ML SYR ONE (12:34)
[2021-08-13] MEDS ORDERED: SODIUM BICARBONATE 8.4% 1 MEQ/ML 50ML SYR IV ONE (12:34)
[2021-08-13] MEDS ORDERED: DEXT 5%/0.45% NACL 1000ML 1,000 ML IV SCH (13:00)
[2021-08-13] MEDS ORDERED: CHLORHEXIDINE GLUCONATE 4% EXTERNAL USE TOP SCH (14:00)
[2021-08-13 20:15] LABS: PLATELET ESTIMATE DECREASED
[2021-08-14] MEDS ORDERED: ENOXAPARIN 40MG/0.4ML SYR SUBCUT SCH (09:00)
== END 2021-08-13 13:11 | DRG 3 ==
LOC: ER 02:31 → MICUNO 05:38 → ENRESERV 09:06 → MICUSO 07-27 10:09 → 5EST 08-09 06:13
PROVIDERS: ADMIT Hospitalist; ATTEND Hospitalist
PROC: 5A1955Z Respiratory Ventilation, Greater than 96 Consecutive Hours (ICD-10-PCS; principal; 2021-07-22)
PROC: 06HY33Z Insertion of Infusion Device into Lower Vein, Percutaneous Approach (ICD-10-PCS; 2021-07-22)
PROC: B54BZZA Ultrasonography of Right Lower Extremity Veins, Guidance (ICD-10-PCS; 2021-07-22)
PROC: 0BH17EZ Insertion of Endotracheal Airway into Trachea, Via Natural or Artificial Opening (ICD-10-PCS; 2021-07-22)
PROC: 0B110F4 Bypass Trachea to Cutaneous with Tracheostomy Device, Open Approach (ICD-10-PCS; 2021-07-31)
PROC: 0GBJ0ZZ Excision of Thyroid Gland Isthmus, Open Approach (ICD-10-PCS; 2021-07-31)
PROC: 05HY33Z Insertion of Infusion Device into Upper Vein, Percutaneous Approach (ICD-10-PCS; 2021-08-02)
PROC: B54MZZA Ultrasonography of Right Upper Extremity Veins, Guidance (ICD-10-PCS; 2021-08-02)
PROC: 0DB78ZX Excision of Stomach, Pylorus, Via Natural or Artificial Opening Endoscopic, Diagnostic (ICD-10-PCS; 2021-08-09)
PROC: 0DH63UZ Insertion of Feeding Device into Stomach, Percutaneous Approach (ICD-10-PCS; 2021-08-09)
PROC: 5A12012 Performance of Cardiac Output, Single, Manual (ICD-10-PCS; 2021-08-13)
DX: A41.89 Other specified sepsis (principal); E43 Unspecified severe protein-calorie malnutrition; J12.82 Pneumonia due to coronavirus disease 2019; U07.1 COVID-19; J96.21 Acute and chronic respiratory failure with hypoxia; J96.22 Acute and chronic respiratory failure with hypercapnia; E87.2 Acidosis; Z99.11 Dependence on respirator [ventilator] status; I50.22 Chronic systolic (congestive) heart failure; E87.5 Hyperkalemia; I27.81 Cor pulmonale (chronic); I25.10 Atherosclerotic heart disease of native coronary artery without angina pectoris; D64.9 Anemia, unspecified; J43.9 Emphysema, unspecified; R13.12 Dysphagia, oropharyngeal phase; D69.6 Thrombocytopenia, unspecified; E88.09 Other disorders of plasma-protein metabolism, not elsewhere classified; K29.50 Unspecified chronic gastritis without bleeding; I11.0 Hypertensive heart disease with heart failure; Z87.891 Personal history of nicotine dependence; Z68.27 Body mass index [BMI] 27.0-27.9, adult; Z93.1 Gastrostomy status
CPT/HCPCS: 36415; 36600; 71045; 76705; 76937; 80048; 80053; 80061; 80202; 81003; 82375; 82607; 82728; 82746; 82805; 82962; 83540; 83550; 83605; 83615; 83735; 83880; 84100; 84145; 84478; 84484; 85025; 85044; 85379; 86140; 87070; 87426; 88305; 92610; 93005; 93970; 93971; 94002; 94003; 94640; 99291; A6261; C1725; C9113; J0360; J0456; J0690; J0696; J1100; J1170; J1650; J2060; J2250; J2270; J2370; J2405; J2543; J2704; J2920; J2930; J3010; J3370; J3490; J7030; J7040; J7050; J7060; A4315